=== PATIENT | male | born 1945 | race African-American/Black ===

== ENCOUNTER 2016-08-04 04:40 | Inpatient (IN) | payer MEDICAID, MEDICARE ==
[2016-08-04] VITALS (11 sets, daily range): BP systolic 165–220; BP diastolic 50–108
[~2016-08-04] VITALS: Ht 185.4 cm; Wt 108.9 kg
[~2016-08-04 04:40] MED LIST: TYLENOL325 MG ORAL
[2016-08-04] MEDS ORDERED: NEURONTIN300 MG ORAL (05:06)
[2016-08-04] MEDS ORDERED: ALBUTEROL SULF8.5 GM INH (05:06)
[2016-08-04] MEDS ORDERED: HYDRALAZINE HCL25 M2 PO (05:06)
[2016-08-04] MEDS ORDERED: LOSARTAN POTAS100 MG ORAL (05:06)
[2016-08-04] MEDS ORDERED: Lidocaine HCl 2% Jelly 5ml Tube TOPIC ONE (05:21)
[2016-08-04 05:42] LABS: BASOPHILS % (AUTO) 1.8 % (0.0-2.0); EOSINOPHILS % (AUTO) 1.6 % (0.0-3.0); LYMPHOCYTES % (AUTO) 25.2 % (20.0-45.0); MEAN CORPUSCULAR HEMOGLOBIN 29.4 PG (27.0-31.0); MEAN CORPUSCULAR HGB CONC 31.9 G/DL (32.0-36.0); MEAN CORPUSCULAR VOLUME 92 FL (80-99); MEAN PLATELET VOLUME 10.2 FL (6.5-10.1); MONOCYTES % (AUTO) 10.6 % (1.0-10.0); NEUTROPHILS % (AUTO) 60.9 % (45.0-75.0); PLATELET COUNT 223 K/UL (150-450); RED BLOOD COUNT 3.94 M/UL (4.70-6.10); RED CELL DISTRIBUTION WIDTH 12.6 % (11.6-14.8); WHITE BLOOD COUNT 9.5 K/UL (4.8-10.8)
--- NOTE | 2016-08-04 05:48 | Emergency Room Report ---
History of Present Illness General Chief Complaint: Male Urogenital Problems Source: Patient Present Illness HPI The patient presents that he cannot urinate. He is being treated for a large prostate at home. He is felt ill with the flu and therefore has been limiting his oral intake recently. He had fevers a few days ago but these have resolved. He has no abdominal pain and fullness. He denies any dysuria. The patient has high blood pressure pulse and has not taken his blood pressure medication for several days. No fevers, dysuria, hematuria, NVD, change in bowels, rashes, CRAIN. + generalized muscle aches with "flu". Allergies: Coded Allergies: NO KNOWN ALLERGIES (Unverified Allergy, Unknown, 08/04/16) Patient History Past Medical History: see triage record Social History: Reports: smoking Social History Narrative at home Reviewed Nursing Documentation: PMH: Agreed, PSxH: Agreed Nursing Documentation-PMH Hx Hypertension: Yes Hx COPD: Yes Hx Diabetes: Yes Review of Systems All Other Systems: negative except mentioned in HPI Physical Exam Vital Signs Date Time Temp Pulse Resp B/P Pulse Ox O2 Delivery O2 Flow Rate FiO2 08/04/16 05:00 97.9 97 20 96 Room Air 08/04/16 05:10 208/108 Sp02 EP Interpretation: reviewed, normal General Appearance: well appearing, no apparent distress, GCS 15 Head: normocephalic Eyes: bilateral eye PERRL, bilateral eye normal inspection ENT: moist mucus membranes Neck: supple Respiratory: lungs clear, normal breath sounds Cardiovascular #1: regular rate, rhythm Cardiovascular #2: 2+ radial (R) Gastrointestinal: normal inspection, normal bowel sounds, non tender, no mass, non-distended Musculoskeletal: back normal, gait/station normal, normal range of motion Neurologic: alert, oriented x3, grossly normal Psychiatric: mood/affect normal Skin: normal inspection, warm/dry Medical Decision Making Diagnostic Impression: Primary Impression: Acute urinary retention Additional Impressions: UTI (urinary tract infection) Qualified Codes: N30.00 - Acute cystitis without hematuria COPD exacerbation Renal failure ER Course Patient unable to urinate properly. Ddx; BPH, obstruction, UTI, ARF amongst others. Emergent evalution with labs. Weir will be placed. After weir, some urine, not excessive. UA with UTI. Antibiotics begun. C/O pain in lower back. morphine given with some relief. Last creat = 7 years ago - normal. Exertional wheezes with minimal exertion. Breathing treatments, solumedrol and CXR ordered. Admit medical for 2 reasons - COPD exacerbation and renal failure. Laboratory Tests Test 08/04/16 05:10 08/04/16 05:35 White Blood Count 9.5 K/UL (4.8-10.8) Red Blood Count 3.94 M/UL (4.70-6.10) L Hemoglobin 11.6 G/DL (14.2-18.0) L Hematocrit 36.3 % (42.0-52.0) L Mean Corpuscular Volume 92 FL (80-99) Mean Corpuscular Hemoglobin 29.4 PG (27.0-31.0) Mean Corpuscular Hemoglobin Concent 31.9 G/DL (32.0-36.0) L Red Cell Distribution Width 12.6 % (11.6-14.8) Platelet Count 223 K/UL (150-450) Mean Platelet Volume 10.2 FL (6.5-10.1) H Neutrophils (%) (Auto) 60.9 % (45.0-75.0) Lymphocytes (%) (Auto) 25.2 % (20.0-45.0) Monocytes (%) (Auto) 10.6 % (1.0-10.0) H Eosinophils (%) (Auto) 1.6 % (0.0-3.0) Basophils (%) (Auto) 1.8 % (0.0-2.0) Sodium Level 139 mEQ/L (135-145) Potassium Level 3.8 mEQ/L (3.4-4.9) Chloride Level 97 mEQ/L (98-107) L Carbon Dioxide Level 26 mEQ/L (20-30) Anion Gap 16 (5-15) H Blood Urea Nitrogen 18 mg/dL (7-23) Creatinine 1.4 mg/dL (0.7-1.2) H Estimate Glomerular Filtration Rate > 60 mL/min (>60) Glucose Level 206 mg/dL (74-106) H Calcium Level 8.9 mg/dL (8.6-10.2) Total Bilirubin 0.8 mg/dL (0.0-1.2) Aspartate Amino Transferase (AST) 27 U/L (5-40) Alanine Aminotransferase (ALT) 12 U/L (3-41) Alkaline Phosphatase 69 U/L (40-129) Total Protein 7.3 g/dL (6.6-8.7) Albumin 3.3 g/dL (3.5-5.2) L Globulin 4.0 g/dL Albumin/Globulin Ratio 0.8 (1.0-2.7) L Lipase 21 U/L (< 60) Urine Color Yellow Urine Appearance Clear Urine pH 7 (4.5-8.0) Urine Specific [place] 1.010 (1.005-1.035) Urine Protein 4+ (NEGATIVE) H Urine Glucose (UA) Negative (NEGATIVE) Urine Ketones 1+ (NEGATIVE) H Urine Occult Blood 4+ (NEGATIVE) H Urine Nitrite Negative (NEGATIVE) Urine Bilirubin Negative (NEGATIVE) Urine Urobilinogen 12 MG/DL (0.0-1.0) H Urine Leukocyte Esterase 1+ (NEGATIVE) H Urine RBC 20-30 /HPF (0 - 0) H Urine WBC 10-15 /HPF (0 - 0) H Urine Squamous Epithelial Cells Few /LPF (NONE/OCC) Urine Bacteria Few /HPF (NONE) EKG Diagnostic Results Rate: normal Rhythm: NSR ST Segments: no acute changes Rhythm Strip Diag. Results EP Interpretation: yes Rhythm: NSR, no PVC's, no ectopy Chest X-Ray Diagnostic Results EP Interpretation: Yes Findings: no consolidation, no effusion, no pneumothorax, other - COPD Number of Views: 1 Last Vital Signs Date Time Temp Pulse Resp B/P Pulse Ox O2 Delivery O2 Flow Rate FiO2 08/04/16 05:10 98.1 65 23 208/108 98 Room Air Status: improved Disposition: ADMITTED INPATIENT Condition: Serious Referrals: NOT CHOSEN IPA/,REFERRING (PCP) Wilson Salgado M.D. Aug 04, 2016 05:48
[2016-08-04 05:56] LABS: APPEARANCE,URINE CLEAR; KETONES,URINE 1+ (NEGATIVE); LEUKOCYTE ESTERASE ,URINE 1+ (NEGATIVE); NITRITE,URINE NEGATIVE (NEGATIVE); PH,URINE 7 (4.5-8.0); PROTEIN,URINE 4+ (NEGATIVE); UROBILINOGEN,URINE 12 MG/DL (0.0-1.0)
[2016-08-04] MEDS ORDERED: Losartan 25mg tab ORAL ONE (06:00)
[2016-08-04 06:47] LABS: BACTERIA,URINE FEW /HPF; RBC,URINE 20-30 /HPF (0 - 0); SQUAMOUS EPITHELIAL CELL,UR FEW /LPF (NONE/OCC)
[2016-08-04 07:07] LABS: ALANINE AMINOTRANSFERASE 12 U/L (3-41); ALBUMIN/GLOBULIN RATIO 0.8 (1.0-2.7); ANION GAP 16 (5-15); ASPARTATE AMINO TRANSFERASE 27 U/L (5-40); CALCIUM 8.9 mg/dL (8.6-10.2); CARBON DIOXIDE 26 mEQ/L (20-30); CHLORIDE 97 mEQ/L (98-107); CREATININE 1.4 mg/dL (0.7-1.2); GLOMERULAR FILTRATION RATE > 60 mL/min (>60); HEMOLYSIS 3; LIPASE 21 U/L (< 60); POTASSIUM 3.8 mEQ/L (3.4-4.9); SODIUM 139 mEQ/L (135-145); TOTAL PROTEIN 7.3 g/dL (6.6-8.7)
[2016-08-04] MEDS ORDERED: Solu-MEDROL 125mg Inj IVP ONE (07:15)
[2016-08-04] MEDS ORDERED: Ipratropium 0.02% Inh Soln 2.5ml UD HHN ONE (07:15)
[2016-08-04] MEDS ORDERED: Morphine Sulfate 4mg/ml Inj IVP ONE ×2 (07:15→12:15)
[2016-08-04] MEDS: Albuterol ud Inhalation HHN SCH ×8 (07:40→09:00)
[2016-08-04] MEDS ORDERED: cefTRIAXone 1 GM in NS 55 ML IVPB ONE (07:45)
[2016-08-04] MEDS ORDERED: Tubing IV Extension IV ONE (07:58)
[2016-08-04] MEDS ORDERED: NS 55 ML IV ONE (07:59)
--- NOTE | 2016-08-04 09:02 | Diagnostic Imaging Report ---
Indications: Shortness of breath Technique: Portable AP chest Findings: Comparison: 09/27/2009 Cardiac silhouette remains normal in size. Pulmonary vasculature remains within normal limits. Lungs and pleura remain clear. Mild calcification of the aortic arch is unchanged. IMPRESSION: No evidence of acute disease, unchanged Stable chronic changes as described
[2016-08-04] MEDS ORDERED: DuoNeb 0.5-3(2.5)mg/3ml neb HHN PRN (17:45)
[2016-08-04] MEDS ORDERED: cefTRIAXone 1 GM in D5W 55 ML IVPB ONE (17:45)
--- NOTE | 2016-08-04 18:59 | History & Physical ---
History and Physical History & Physicial Dictated for Int Med - Dr Kruger no. [id number]. ADEOLA CHIU Aug 04, 2016 18:59
[2016-08-04] MEDS ORDERED: Morphine Sulfate 4mg/ml Inj IM PRN (19:00)
[2016-08-04] MEDS: Levemir Flexpen SUBQ SCH (19:51)
[2016-08-04] MEDS: HydrALAZINE 25mg tab ORAL SCH (19:52)
[2016-08-04] MEDS ORDERED: Norco 7.5mg/325mg tab ORAL PRN (20:30)
[2016-08-04] MEDS ORDERED: Norco 5mg/325mg tab ORAL PRN (20:30)
[2016-08-04 20:54] LABS: ALANINE AMINOTRANSFERASE 12 U/L (3-41); ALBUMIN/GLOBULIN RATIO 0.9 (1.0-2.7); ANION GAP 13 (5-15); ASPARTATE AMINO TRANSFERASE 22 U/L (5-40); CALCIUM 8.4 mg/dL (8.6-10.2); CARBON DIOXIDE 26 mEQ/L (20-30); CHLORIDE 97 mEQ/L (98-107); CREATININE 1.9 mg/dL (0.7-1.2); GLOMERULAR FILTRATION RATE 42.7 mL/min (>60); HEMOLYSIS 10; POTASSIUM 4.8 mEQ/L (3.4-4.9); SODIUM 136 mEQ/L (135-145); TOTAL PROTEIN 6.6 g/dL (6.6-8.7); URIC ACID 8.5 mg/dL (3.0-7.5)
[2016-08-04 21:07] LABS: FREE T3 1.8 pg/mL (2.3-4.2); THYROID STIMULATING HORMONE 0.332 uIU/mL (0.300-4.500)
[2016-08-04] MEDS: Tamsulosin 0.4mg cap ORAL SCH (21:50)
[2016-08-04] MEDS: Atorvastatin 20mg tab ORAL SCH (21:51)
[2016-08-04] MEDS: NovoLOG Insulin Flexpen SUBQ SCH (21:51)
[2016-08-04 22:14] LABS: APPEARANCE,URINE CLEAR; KETONES,URINE NEGATIVE (NEGATIVE); LEUKOCYTE ESTERASE ,URINE 2+ (NEGATIVE); NITRITE,URINE NEGATIVE (NEGATIVE); PH,URINE 5 (4.5-8.0); PROTEIN,URINE 4+ (NEGATIVE); UROBILINOGEN,URINE 8 MG/DL (0.0-1.0)
[2016-08-04 22:31] LABS: BACTERIA,URINE FEW /HPF
[2016-08-05] VITALS: BP 173/86
--- NOTE | 2016-08-05 03:08 | History and Physical Report ---
DATE OF ADMISSION: 08/04/2016 CHIEF COMPLAINT: The patient is a 79-year-old male with a history of benign prostatic hypertrophy, who presents with chief complaint of decreased urine flow. HISTORY OF PRESENT ILLNESS: The patient has a history of benign prostatic hypertrophy. The patient states he got flu couple weeks ago. The patient has not been able to take his medications. The patient states his urine flow has decreased considerably over the last 24 hours. The patient is now unable to urinate. The patient presented to [facility] emergency room. The patient was admitted for urinary outlet obstruction. REVIEW OF SYSTEMS: Constitutional: The patient denies weight loss or weight gain. The patient denies fevers or chills. HEENT: The patient denies ear or throat pain. Cardiovascular: The patient denies palpitations or chest pain. Denies any wheezing or shortness of breath. Abdominal: The patient denies nausea, vomiting, diarrhea, or constipation. Genitourinary: The patient complains of decreased urine flow as above. The patient denies dysuria, increased frequency of urination. Neuromuscular: The patient denies seizures or generalized weakness. PAST MEDICAL HISTORY: Significant for: 1. Type 2 diabetes. 2. Hypertension. 3. Chronic obstructive pulmonary disease. 4. Benign prostatic hypertrophy. PAST SURGICAL HISTORY: Significant for: 1. Left total hip replacement. 2. Lumbar surgery. 3. Cervical spine surgery x2. CURRENT MEDICATIONS: 1. Albuterol 2.5 mg nebulized q.4 h. 2. Neurontin 300 mg one tablet p.o. daily. 3. Hydralazine 25 mg one tablet p.o. three times daily. 4. Losartan 100 mg one tablet p.o. daily. ALLERGIES: No known drug allergies. SOCIAL HISTORY: The patient is single. The patient denies tobacco use, having quit 18 years previously. The patient denies alcohol use. PHYSICAL EXAMINATION: VITAL SIGNS: Temperature 98.2, respirations 20, pulse 82, and blood pressure 192/70. GENERAL: The patient is well-developed and well-nourished male, in no apparent distress. HEENT: Eyes, pupils are equal and responsive to light and accommodation. Extraocular moves are intact. NECK: Supple without lymphadenopathy. CHEST: Lungs are clear to auscultation bilaterally without wheezes or rales. CARDIOVASCULAR: Regular rhythm and rate. S1 and S2 normal without murmurs, rubs, or gallops. ABDOMEN: Soft, nontender, and nondistended with positive bowel sounds. No evidence of hepatosplenomegaly currently. No rebound or guarding. EXTREMITIES: Negative for clubbing, cyanosis, or edema. RECTAL/GENITAL: Refused. NEUROLOGIC: Cranial nerves II through XII are grossly intact without focal deficits. Motor strength is 5/5 bilaterally. Deep tendon reflexes are 2+ plantar. LABORATORY STUDIES: WBC 9.5, hemoglobin 11.6, hematocrit 36.3, and platelets 222,000. Sodium 139, potassium 3.8, chloride 97, CO2 26, BUN 18, creatinine 1.4, and glucose 206. ASSESSMENT: This is a 71-year-old male with: 1. Urinary outlet obstruction. 2. Benign prostatic hypertrophy. 3. Diabetes, type 2. 4. Hypertension. 5. Chronic obstructive pulmonary disease. TREATMENT: 1. Urinary outlet obstruction. Urology consultation obtained with Dr. Rizvi. The patient currently has a Mcnair catheter in place. We will follow recommendations of Urology. The patient may require a transurethral resection of prostate during this hospitalization. 2. Benign prostatic hypertrophy. See urinary outlet obstruction in the bladder. 3. Diabetes type 2. The patient has been started on Levemir 5 units subcutaneously daily and a regular insulin sliding scale. 4. Hypertension. The patient has been started on hydralazine 100 mg one tablet p.o. three times daily. Clonidine will be used p.r.n. for systolic greater than 150 and diastolic greater than 100. 5. Chronic obstructive pulmonary disease. The patient has been started on DuoNeb q.4 h. p.r.n. Rip Childress M.D. DR: MURPHY JOB#: [id number] CC:
[2016-08-05 04:00] VITALS: BP 183/72
[2016-08-05] MEDS: NovoLOG Insulin Flexpen SUBQ SCH ×4 (06:01→22:04)
[2016-08-05 07:09] LABS: ALBUMIN/GLOBULIN RATIO 0.7 (1.0-2.7); CALCIUM 8.2 mg/dL (8.6-10.2); CREATININE 1.5 mg/dL (0.7-1.2); GLOMERULAR FILTRATION RATE 56.1 mL/min (>60); MAGNESIUM 1.7 mg/dL (1.7-2.5); PHOSPHORUS 3.8 mg/dL (2.5-4.8); POTASSIUM 4.5 mEQ/L (3.4-4.9); TOTAL PROTEIN 6.3 g/dL (6.6-8.7)
[2016-08-05 07:39] LABS: BASOPHILS % (AUTO) 1.2 % (0.0-2.0); LYMPHOCYTES % (AUTO) 17.5 % (20.0-45.0); MEAN CORPUSCULAR HGB CONC 31.5 G/DL (32.0-36.0); MEAN CORPUSCULAR VOLUME 92 FL (80-99); MEAN PLATELET VOLUME 10.5 FL (6.5-10.1); MONOCYTES % (AUTO) 10.3 % (1.0-10.0); PLATELET COUNT 180 K/UL (150-450); RED BLOOD COUNT 3.45 M/UL (4.70-6.10); RED CELL DISTRIBUTION WIDTH 12.4 % (11.6-14.8)
[2016-08-05 08:00] VITALS: BP 177/73
[2016-08-05] MEDS: HydrALAZINE 25mg tab ORAL SCH ×3 (09:39→17:09)
[2016-08-05] MEDS: cefTRIAXone 1 GM in D5W 55 ML IVPB SCH (09:39)
[2016-08-05] MEDS: Levemir Flexpen SUBQ SCH (09:47)
[2016-08-05 12:00] VITALS: BP 181/75
--- NOTE | 2016-08-05 13:47 | Consultation ---
DATE OF CONSULTATION: 08/05/2015 CONSULTING PHYSICIAN: Jose Rizvi M.D. REFERRING PHYSICIAN: Rip Childress M.D. REASON FOR EVALUATION: Urinary retention. HISTORY OF PRESENT ILLNESS: This is a 71-year-old, gentleman. He has a history of BPH. He came to the emergency room complaining of difficulty voiding. He had a Mcnair catheter placed in the emergency room. He apparently does have a strong family history of BPH. He has been on Flomax as an outpatient. Denies previous prostate surgery. PAST MEDICAL HISTORY: Significant for history of diabetes, hypertension, chronic obstructive pulmonary disease, BPH, and mild renal chronic renal insufficiency. PAST SURGICAL HISTORY: He has had a hip replacement. He has had spine surgery. CURRENT MEDICATIONS: In the hospital, the patient is on Rocephin, insulin, Lipitor, Flomax, [place], Neurontin, , Levemir, and dextrose. ALLERGIES: No known allergies. SOCIAL HISTORY: smoking. FAMILY HISTORY: Noncontributory. REVIEW OF SYSTEMS: As above. PHYSICAL EXAMINATION: GENERAL: This is an elderly male, in no acute distress. VITAL SIGNS: His temperature is 98.2, blood pressure is 182/78, pulse 70, respirations 21. HEENT: Normocephalic. NECK: Supple. ABDOMEN: Soft. BACK: No CVA tenderness. : Mcnair catheter is place. Urine is yellow. RECTAL: Firm prostate about 40 to 60 g. EXTREMITIES: No clubbing or cyanosis. LABORATORY DATA: His UA showed 20 to 30, RBCs 10 to 15, WBCs 4+ protein. There is no urine culture. His BUN is 29, creatinine is 1.5. He did have a creatinine of 1.9 yesterday, potassium 4.5. White count is 13.0, hemoglobin 10.0, and platelets are 180,000. DIAGNOSTIC IMAGING STUDIES: The patient had a chest x-ray, which did not show acute disease. IMPRESSION: 1. Urinary retention. 2. Benign prostatic hypertrophy. 3. Probable neurogenic bladder. 4. Renal insufficiency, which is acute on chronic. 5. Hematuria. 6. Pyuria. 7. Possible chronic prostatitis. 8. Proteinuria. PLAN AND DISCUSSION: Again, the patient does have urinary retention presumably secondary to combination of BPH related bladder outlet obstruction and possible atonic neurogenic bladder because of the diabetes and previous spine surgery. He is to continue with Flomax 0.8 mg as ordered. We will also consider adding finasteride 5 mg daily. He also has pyuria and he had a component of chronic prostatitis and to continue with antibiotics as ordered. He does have some renal insufficiency with fluctuations of his creatinine and this will be monitored closely. Renal ultrasound will also be obtained. At some point, we need to have cystoscopy to complete the workup and . I will follow the patient. Other recommendations forthcoming. Thank you, Dr. Childress, for asking me to see this patient in consultation. Jose Rizvi M.D. DR: NADINE JOB#: [id number] CC:
[2016-08-05 16:00] VITALS: BP 173/93
[2016-08-05] MEDS ORDERED: Promethazine/Codeine 5ml UD ORAL PRN (16:15)
--- NOTE | 2016-08-05 16:15 | Consultation ---
History of Present Illness General Date patient seen: Aug 05, 2016 Chief Complaint: Male Urogenital Problems Referring physician: Dr. Kruger Reason for Consultation: dyspnea Present Illness HPI 71 year old male with hx of dM, BPH, COPD presented to Er of [facility] because he couldn't urinate. He was also noted to have dyspnea and wheezing. Pt has a hx of smoking and COPD. He has also some productive cough Allergies: Coded Allergies: NO KNOWN ALLERGIES (Unverified Allergy, Unknown, 08/04/16) Medication History Scheduled Albuterol Sulfate* (Albuterol Sulfate Mdi*), 2 PUFF INH Q3H, (Reported) Losartan Potassium (Losartan Potassium), Unknown Dose ORAL DAILY, (Reported) Scheduled PRN Acetaminophen (Tylenol), 650 MG ORAL Q6H PRN for For Pain Miscellaneous Medications Gabapentin (Neurontin), 300 MG ORAL, (Reported) Hydralazine HCl (Hydralazine HCl), 25 MG PO, (Reported) Patient History Healthcare decision maker Resuscitation status Full Code Advanced Directive on File No Past Medical/Surgical History Past Medical/Surgical History: (1) COPD (chronic obstructive pulmonary disease) (2) Diabetes mellitus (3) HTN (hypertension) Review of Systems Respiratory: Reports: cough, shortness of breath Genitourinary: Reports: dysuria Physical Exam Lines, tubes and drains: peripheral, central line, trach HEENT: atraumatic Neck: non-tender, supple Respiratory/Chest: rhonchi - left, rhonchi - right, expiratory wheezing Cardiovascular/Chest: normal peripheral pulses, normal rate Abdomen: normal bowel sounds Last 24 Hour Vital Signs Date Time Temp Pulse Resp B/P Pulse Ox O2 Delivery O2 Flow Rate FiO2 08/05/16 14:43 98.1 08/05/16 12:47 98.1 08/05/16 12:00 98.1 88 22 181/75 99 Room Air 08/05/16 11:48 177/73 08/05/16 09:39 177/73 08/05/16 08:00 98.2 82 21 177/73 95 Room Air 08/05/16 04:00 98.1 70 22 183/72 95 Room Air 08/05/16 00:00 98.6 75 20 173/86 93 08/04/16 20:00 78 20 Room Air 21 08/04/16 20:00 98.4 78 21 165/71 92 Room Air 08/04/16 19:52 169/87 08/04/16 16:30 97.2 84 24 169/87 93 Room Air Intake and Output 08/04/16 08/05/16 19:00 07:00 Intake Total 1945 ml 900 ml Output Total 275 ml Balance 1670 ml 900 ml Intake Oral 240 ml IV Total 1705 ml 900 ml Output Urine Total 275 ml Laboratory Tests Test 08/04/16 20:00 08/04/16 20:15 08/05/16 05:10 Urine Color Brown Urine Appearance Clear Urine pH 5 (4.5-8.0) Urine Specific [place] 1.020 (1.005-1.035) Urine Protein 4+ (NEGATIVE) H Urine Glucose (UA) Negative (NEGATIVE) Urine Ketones Negative (NEGATIVE) Urine Occult Blood 4+ (NEGATIVE) H Urine Nitrite Negative (NEGATIVE) Urine Bilirubin Negative (NEGATIVE) Urine Urobilinogen 8 MG/DL (0.0-1.0) H Urine Leukocyte Esterase 2+ (NEGATIVE) H Urine RBC 5-10 /HPF (0 - 0) H Urine WBC 2-4 /HPF (0 - 0) Urine Squamous Epithelial Cells None /LPF (NONE/OCC) Urine Bacteria Few /HPF (NONE) Urine Eosinophils None seen Urine Random Sodium 36 mmol/L Urine Random Chloride 30 mmol/L Urine Potassium Timed 60 mmol/L Sodium Level 136 mEQ/L (135-145) 139 mEQ/L (135-145) Potassium Level 4.8 mEQ/L (3.4-4.9) 4.5 mEQ/L (3.4-4.9) Chloride Level 97 mEQ/L (98-107) L 103 mEQ/L (98-107) Carbon Dioxide Level 26 mEQ/L (20-30) 21 mEQ/L (20-30) Anion Gap 13 (5-15) 15 (5-15) Blood Urea Nitrogen 28 mg/dL (7-23) H 29 mg/dL (7-23) H Creatinine 1.9 mg/dL (0.7-1.2) H 1.5 mg/dL (0.7-1.2) H Estimat Glomerular Filtration Rate 42.7 mL/min (>60) 56.1 mL/min (>60) Glucose Level 333 mg/dL (74-106) #H 107 mg/dL (74-106) #H Plasma/Serum Osmolality Pending Uric Acid 8.5 mg/dL (3.0-7.5) H Calcium Level 8.4 mg/dL (8.6-10.2) L 8.2 mg/dL (8.6-10.2) L Total Bilirubin 0.5 mg/dL (0.0-1.2) 0.6 mg/dL (0.0-1.2) Aspartate Amino Transf (AST/SGOT) 22 U/L (5-40) 21 U/L (5-40) Alanine Aminotransferase (ALT/SGPT) 12 U/L (3-41) 10 U/L (3-41) Alkaline Phosphatase 70 U/L (40-129) 56 U/L (40-129) Total Creatine Kinase 154 U/L (38-174) Total Protein 6.6 g/dL (6.6-8.7) 6.3 g/dL (6.6-8.7) L Albumin 3.2 g/dL (3.5-5.2) L 2.6 g/dL (3.5-5.2) L Globulin 3.4 g/dL 3.7 g/dL Albumin/Globulin Ratio 0.9 (1.0-2.7) L 0.7 (1.0-2.7) L Thyroid Stimulating Hormone (TSH) 0.332 uIU/mL (0.300-4.500) Free Thyroxine 1.39 ng/dL (0.86-1.85) Free Triiodothyronine 1.8 pg/mL (2.3-4.2) L Cortisol Pending White Blood Count 13.0 K/UL (4.8-10.8) H Red Blood Count 3.45 M/UL (4.70-6.10) L Hemoglobin 10.0 G/DL (14.2-18.0) L Hematocrit 31.7 % (42.0-52.0) L Mean Corpuscular Volume 92 FL (80-99) Mean Corpuscular Hemoglobin 29.0 PG (27.0-31.0) Mean Corpuscular Hemoglobin Concent 31.5 G/DL (32.0-36.0) L Red Cell Distribution Width 12.4 % (11.6-14.8) Platelet Count 180 K/UL (150-450) Mean Platelet Volume 10.5 FL (6.5-10.1) H Neutrophils (%) (Auto) 71.0 % (45.0-75.0) Lymphocytes (%) (Auto) 17.5 % (20.0-45.0) L Monocytes (%) (Auto) 10.3 % (1.0-10.0) H Eosinophils (%) (Auto) 0.0 % (0.0-3.0) Basophils (%) (Auto) 1.2 % (0.0-2.0) Phosphorus Level 3.8 mg/dL (2.5-4.8) Magnesium Level 1.7 mg/dL (1.7-2.5) Height (Feet): 6 Height (Inches): 1.00 Weight (Pounds): 240 Medications Current Medications Medications (Trade) Dose Ordered Sig/Ana Route PRN Reason Start Time Stop Time Status Last Admin Dose Admin Acetaminophen/ Hydrocodone Bitart ([place] 5/325) 1 tab Q6H PRN ORAL Moderate Pain (Pain Scale 4-6) 08/04/16 20:30 08/11/16 20:29 Acetaminophen/ Hydrocodone Bitart ([place] 7.5/325) 1 ea EVERY 6 HOURS PRN ORAL Severe Pain (Pain Scale 7-10) 08/04/16 20:30 08/11/16 20:29 08/05/16 13:44 Albuterol/ Ipratropium (DuoNeb 0.5-3(2.5)mg/3ml) 3 ml Q4HRT PRN HHN Shortness of Breath 08/04/16 17:45 08/09/16 17:44 08/05/16 11:45 Atorvastatin Calcium (Lipitor) 20 mg BEDTIME ORAL 08/04/16 21:00 09/03/16 20:59 08/04/16 21:51 Ceftriaxone Sodium/Dextrose (Rocephin/D5W 50ml) 55 ml @ 100 mls/hr Q24H IVPB 08/05/16 09:00 08/12/16 08:59 08/05/16 09:39 Dextrose (Dextrose 50%) STAT PRN IV Hypoglycemia 08/04/16 17:45 09/03/16 17:44 Finasteride (Proscar) 5 mg DAILY ORAL 08/05/16 09:30 09/04/16 09:29 08/05/16 09:39 Gabapentin (Neurontin) 600 mg THREE TIMES A DAY ORAL 08/05/16 10:15 09/04/16 10:14 08/05/16 11:48 Hydralazine HCl (Apresoline) 100 mg TID ORAL 08/04/16 18:00 09/03/16 17:59 08/05/16 11:48 Insulin Aspart (NovoLOG) BEFORE MEALS AND HS SUBQ 08/04/16 21:00 09/03/16 20:59 08/05/16 11:50 Insulin Detemir (Levemir) 5 units DAILY SUBQ 08/04/16 17:45 09/03/16 17:44 08/05/16 09:47 Ondansetron HCl 4 mg 4 mg Q4HR PRN IVP Nausea & Vomiting 08/04/16 19:00 09/03/16 18:59 Sodium Chloride (Sodium Chloride 1000ml bag) 1,000 ml @ 75 mls/hr [id number] IV 08/04/16 17:45 09/03/16 17:44 08/05/16 06:01 Tamsulosin HCl (Flomax) 0.8 mg BEDTIME ORAL 08/04/16 21:00 09/03/16 20:59 08/04/16 21:50 Assessment/Plan Problem List: (1) COPD (chronic obstructive pulmonary disease) ICD Codes: J44.9 - Chronic obstructive pulmonary disease, unspecified SNOMED: 60141850 (2) Purulent bronchitis ICD Codes: J41.1 - Mucopurulent chronic bronchitis SNOMED: 73949490 (3) COPD exacerbation ICD Codes: J44.1 - Chronic obstructive pulmonary disease with (acute) exacerbation SNOMED: 372917503, 117646548 (4) UTI (urinary tract infection) ICD Codes: N39.0 - Urinary tract infection, site not specified SNOMED: 03928930, 338763664 Qualifiers: Qualified Codes: N30.00 - Acute cystitis without hematuria (5) Renal failure ICD Codes: N19 - Unspecified kidney failure SNOMED: 89656100 (6) HTN (hypertension) ICD Codes: I10 - Essential (primary) hypertension SNOMED: 41824303 Assessment/Plan respiratory treatment IV antibiotics check sputum c/s renal evaluation chest PT check electrolytes monitor BP KALEIGH SCHULER Aug 05, 2016 16:15
[2016-08-05] MEDS ORDERED: Norco 5mg/325mg tab ORAL PRN (16:26)
[2016-08-05] MEDS ORDERED: Norco 7.5mg/325mg tab ORAL PRN (16:26)
[2016-08-05] MEDS ORDERED: HydrALAZINE 50mg tab ORAL PRN (16:45)
[2016-08-05] MEDS: Morphine Sulfate 4mg/ml Inj IV PRN ×2 (16:49→22:07)
[2016-08-05] MEDS: Lactulose 20gm/30ml UDC ORAL SCH (17:06)
[2016-08-05] MEDS: Docusate 100mg cap ORAL SCH (17:09)
[2016-08-05] MEDS: DuoNeb 0.5-3(2.5)mg/3ml neb HHN SCH (19:28)
[2016-08-05 20:00] VITALS: BP 170/76
--- NOTE | 2016-08-05 20:27 | Internal Med Progress Note ---
Subjective Date of Service: Aug 05, 2016 Physician Name Rip Chiu Attending Physician Jake Kruger MD Current Medications Medications (Trade) Dose Ordered Sig/Ana Route PRN Reason Start Time Stop Time Status Last Admin Dose Admin Acetaminophen/ Hydrocodone Bitart ([place] 5/325) 1 tab Q6H PRN ORAL Mild Pain (Pain Scale 1-3) 08/05/16 16:26 08/11/16 20:29 Acetaminophen/ Hydrocodone Bitart ([place] 7.5/325) 1 ea EVERY 6 HOURS PRN ORAL Moderate Pain (Pain Scale 4-6) 08/05/16 16:26 08/11/16 20:29 Albuterol/ Ipratropium (DuoNeb 0.5-3(2.5)mg/3ml) 3 ml Q4HRT PRN HHN Shortness of Breath 08/04/16 17:45 08/09/16 17:44 08/05/16 11:45 Albuterol/ Ipratropium (DuoNeb 0.5-3(2.5)mg/3ml) 3 ml Q6HRT HHN 08/05/16 19:00 08/10/16 18:59 08/05/16 19:28 Atorvastatin Calcium (Lipitor) 20 mg BEDTIME ORAL 08/04/16 21:00 09/03/16 20:59 08/04/16 21:51 Carvedilol (Coreg) 3.125 mg EVERY 12 HOURS ORAL 08/05/16 21:00 09/04/16 20:59 Ceftriaxone Sodium/Dextrose (Rocephin/D5W 50ml) 55 ml @ 100 mls/hr Q24H IVPB 08/05/16 09:00 08/12/16 08:59 08/05/16 09:39 Dextrose (Dextrose 50%) STAT PRN IV Hypoglycemia 08/04/16 17:45 09/03/16 17:44 Docusate Sodium (Colace) 100 mg THREE TIMES A DAY ORAL 08/05/16 18:00 09/04/16 17:59 08/05/16 17:09 Finasteride (Proscar) 5 mg DAILY ORAL 08/05/16 09:30 09/04/16 09:29 08/05/16 09:39 Gabapentin (Neurontin) 600 mg THREE TIMES A DAY ORAL 1/16/17 10:15 09/04/16 10:14 08/05/16 17:09 Hydralazine HCl (Apresoline) 50 mg Q4HR PRN ORAL SBP>160 08/05/16 16:45 09/04/16 16:44 Hydralazine HCl (Apresoline) 100 mg TID ORAL 08/04/16 18:00 09/03/16 17:59 08/05/16 17:09 Insulin Aspart (NovoLOG) BEFORE MEALS AND HS SUBQ 08/04/16 21:00 09/03/16 20:59 08/05/16 16:57 Insulin Detemir (Levemir) 5 units DAILY SUBQ 08/04/16 17:45 09/03/16 17:44 08/05/16 09:47 Lactulose (Cephulac) 30 gm THREE TIMES A DAY ORAL 08/05/16 18:00 09/04/16 17:59 Mineral Oil (Fleet's Mineral Oil Enema) 133 ml EVERY OTHER DAY RECTAL 08/07/16 09:00 09/06/16 08:59 Morphine Sulfate (Morphine Sulfate) 4 mg Q4H PRN IV Severe Pain (Pain Scale 7-10) 08/05/16 16:15 08/12/16 16:14 08/05/16 16:49 Ondansetron HCl 4 mg 4 mg Q4HR PRN IVP Nausea & Vomiting 08/04/16 19:00 09/03/16 18:59 Polyethylene Glycol (Miralax) 17 gm BEDTIME ORAL 08/05/16 21:00 09/04/16 20:59 Promethazine HCl/ Codeine (Phenergan with Codeine) 5 ml Q4H PRN ORAL For Cough 08/05/16 16:15 09/04/16 16:14 Sennosides (Senokot) 8.6 mg DAILY ORAL 08/06/16 09:00 09/05/16 08:59 Sodium Chloride (Sodium Chloride 1000ml bag) 1,000 ml @ 75 mls/hr [id number] IV 08/04/16 17:45 09/03/16 17:44 08/05/16 06:01 Tamsulosin HCl (Flomax) 0.8 mg BEDTIME ORAL 08/04/16 21:00 09/03/16 20:59 08/04/16 21:50 Allergies: Coded Allergies: NO KNOWN ALLERGIES (Unverified Allergy, Unknown, 08/04/16) ROS Limited/Unobtainable: No Constitutional: Reports: no symptoms HEENT: Reports: no symptoms Cardiovascular: Reports: no symptoms Respiratory: Reports: no symptoms Gastrointestinal/Abdominal: Reports: no symptoms Genitourinary: Reports: other - Urine obstruction Neurologic/Psychiatric: Reports: no symptoms Subjective 71 YO M admitted with urine outlet obstruction. Cover for Int Med-Dr Kruger. Objective Last Vital Signs Date Time Temp Pulse Resp B/P Pulse Ox O2 Delivery O2 Flow Rate FiO2 08/05/16 19:45 76 18 98 Room Air 21 08/05/16 17:09 173/93 08/05/16 14:43 98.1 General Appearance: WD/WN, no apparent distress, alert EENT: PERRL/EOMI, normal ENT inspection Neck: non-tender, normal alignment, supple Cardiovascular: normal peripheral pulses, normal rate, regular rhythm, no gallop/murmur, no JVD Respiratory/Chest: chest wall non-tender, lungs clear, normal breath sounds, no respiratory distress, no accessory muscle use Abdomen: normal bowel sounds, non tender, soft, no organomegaly, no mass Extremities: normal range of motion Neurologic: bottom stainer II-XII grossly normal, no motor/sensory deficits Skin: normal pigmentation, warm/dry Laboratory Tests Test 08/05/16 05:10 White Blood Count 13.0 K/UL (4.8-10.8) H Red Blood Count 3.45 M/UL (4.70-6.10) L Hemoglobin 10.0 G/DL (14.2-18.0) L Hematocrit 31.7 % (42.0-52.0) L Mean Corpuscular Volume 92 FL (80-99) Mean Corpuscular Hemoglobin 29.0 PG (27.0-31.0) Mean Corpuscular Hemoglobin Concent 31.5 G/DL (32.0-36.0) L Red Cell Distribution Width 12.4 % (11.6-14.8) Platelet Count 180 K/UL (150-450) Mean Platelet Volume 10.5 FL (6.5-10.1) H Neutrophils (%) (Auto) 71.0 % (45.0-75.0) Lymphocytes (%) (Auto) 17.5 % (20.0-45.0) L Monocytes (%) (Auto) 10.3 % (1.0-10.0) H Eosinophils (%) (Auto) 0.0 % (0.0-3.0) Basophils (%) (Auto) 1.2 % (0.0-2.0) Sodium Level 139 mEQ/L (135-145) Potassium Level 4.5 mEQ/L (3.4-4.9) Chloride Level 103 mEQ/L (98-107) Carbon Dioxide Level 21 mEQ/L (20-30) Anion Gap 15 (5-15) Blood Urea Nitrogen 29 mg/dL (7-23) H Creatinine 1.5 mg/dL (0.7-1.2) H Estimat Glomerular Filtration Rate 56.1 mL/min (>60) Glucose Level 107 mg/dL (74-106) #H Calcium Level 8.2 mg/dL (8.6-10.2) L Phosphorus Level 3.8 mg/dL (2.5-4.8) Magnesium Level 1.7 mg/dL (1.7-2.5) Total Bilirubin 0.6 mg/dL (0.0-1.2) Aspartate Amino Transf (AST/SGOT) 21 U/L (5-40) Alanine Aminotransferase (ALT/SGPT) 10 U/L (3-41) Alkaline Phosphatase 56 U/L (40-129) Total Protein 6.3 g/dL (6.6-8.7) L Albumin 2.6 g/dL (3.5-5.2) L Globulin 3.7 g/dL Albumin/Globulin Ratio 0.7 (1.0-2.7) L Intake and Output 08/04/16 08/05/16 19:00 07:00 Intake Total 1945 ml 900 ml Output Total 275 ml Balance 1670 ml 900 ml Intake Oral 240 ml IV Total 1705 ml 900 ml Output Urine Total 275 ml Assessment/Plan Problem List: (1) Accelerated hypertension Assessment & Plan: D/C Coreg; Continue hydralazine and losartan. Clonidine prn (2) Decreased urine output (3) Acute urinary retention Assessment & Plan: See urology note. Await cystoscopy (4) Diabetes mellitus Assessment & Plan: Cont novolog sliding scale. (5) COPD (chronic obstructive pulmonary disease) (6) BPH (benign prostatic hypertrophy) Assessment & Plan: Cont flomax (7) Neurogenic bladder Status: not improved RIP CHIU Aug 05, 2016 20:27
--- NOTE | 2016-08-05 21:25 | Cardiology Report ---
APPROVED REPORT EKG Measurement Heart [id number] [id number] Normal sinus rhythm Septal infarct, age undetermined Abnormal ECG
[2016-08-05] MEDS: Tamsulosin 0.4mg cap ORAL SCH (22:03)
[2016-08-05] MEDS: Atorvastatin 20mg tab ORAL SCH (22:03)
[2016-08-05] MEDS: Miralax 17gm pkt ORAL SCH (22:04)
[2016-08-05] MEDS: Losartan 50mg tab ORAL SCH (22:04)
[2016-08-06] MEDS: DuoNeb 0.5-3(2.5)mg/3ml neb HHN SCH ×4 (00:42→20:45)
[2016-08-06 04:00] VITALS: BP 175/89
[2016-08-06] MEDS: NovoLOG Insulin Flexpen SUBQ SCH ×4 (06:06→22:00)
[2016-08-06] MEDS: Morphine Sulfate 4mg/ml Inj IV PRN ×3 (07:00→17:35)
[2016-08-06 07:22] LABS: BASOPHILS % (AUTO) 1.9 % (0.0-2.0); LYMPHOCYTES % (AUTO) 25.1 % (20.0-45.0); MEAN CORPUSCULAR HEMOGLOBIN 28.9 PG (27.0-31.0); MEAN CORPUSCULAR HGB CONC 31.3 G/DL (32.0-36.0); MEAN CORPUSCULAR VOLUME 92 FL (80-99); MEAN PLATELET VOLUME 10.7 FL (6.5-10.1); MONOCYTES % (AUTO) 8.7 % (1.0-10.0); NEUTROPHILS % (AUTO) 61.3 % (45.0-75.0); PLATELET COUNT 160 K/UL (150-450); RED BLOOD COUNT 3.78 M/UL (4.70-6.10); RED CELL DISTRIBUTION WIDTH 12.5 % (11.6-14.8); WHITE BLOOD COUNT 7.4 K/UL (4.8-10.8)
[2016-08-06 07:35] LABS: ANION GAP 14 (5-15); CALCIUM 8.1 mg/dL (8.6-10.2); CARBON DIOXIDE 24 mEQ/L (20-30); CHLORIDE 99 mEQ/L (98-107); CREATININE 1.3 mg/dL (0.7-1.2); GLOMERULAR FILTRATION RATE > 60 mL/min (>60); HEMOLYSIS 7; POTASSIUM 4.3 mEQ/L (3.4-4.9); SODIUM 137 mEQ/L (135-145)
[2016-08-06] MEDS: cefTRIAXone 1 GM in D5W 55 ML IVPB SCH (08:19)
[2016-08-06] MEDS: HydrALAZINE 25mg tab ORAL SCH ×3 (08:20→18:06)
[2016-08-06] MEDS: Docusate 100mg cap ORAL SCH ×3 (08:20→18:06)
[2016-08-06] MEDS: Lactulose 20gm/30ml UDC ORAL SCH ×4 (08:21→18:07)
[2016-08-06] MEDS: Levemir Flexpen SUBQ SCH (08:29)
[2016-08-06 08:38] VITALS: BP 181/85
--- NOTE | 2016-08-06 10:05 | Urology Progress Note ---
Assessment/Plan Assessment/Plan 1. Urinary retention. 2. Benign prostatic hypertrophy. 3. Probable neurogenic bladder. 4. Renal insufficiency, which is acute on chronic. 5. Hematuria. 6. Pyuria. 7. Possible chronic prostatitis. 8. Proteinuria. cont flomax and proscar abx as ordered f/u on urine cx voiding trial later Subjective Allergies: Coded Allergies: NO KNOWN ALLERGIES (Unverified Allergy, Unknown, 08/04/16) Subjective no new complaints Objective Last 24 Hour Vital Signs Date Time Temp Pulse Resp B/P Pulse Ox O2 Delivery O2 Flow Rate FiO2 08/06/16 08:38 97.7 81 18 181/85 98 Room Air 08/06/16 08:20 175/89 08/06/16 08:20 175/89 08/06/16 07:56 81 17 100 Room Air 21 08/06/16 07:41 21 08/06/16 07:41 78 16 95 Room Air 21 08/06/16 07:30 97.5 08/06/16 07:30 97.5 08/06/16 04:36 175/89 08/06/16 04:00 97.5 74 18 175/89 93 Room Air 08/06/16 00:43 Room Air 08/06/16 00:42 Room Air 08/05/16 22:04 170/76 08/05/16 20:00 98.4 84 20 170/76 93 Room Air 08/05/16 19:45 76 18 98 Room Air 21 08/05/16 19:28 79 18 95 Room Air 21 08/05/16 17:09 173/93 08/05/16 16:00 97.7 93 22 173/93 91 Room Air 08/05/16 14:43 98.1 08/05/16 12:00 98.1 88 22 181/75 99 Room Air 08/05/16 11:48 177/73 Intake and Output 08/05/16 08/06/16 19:00 07:00 Intake Total 1400 ml 1125 ml Output Total 350 ml 1050 ml Balance 1050 ml 75 ml Intake Oral 700 ml 225 ml IV Total 700 ml 900 ml Output Urine Total 350 ml 1050 ml Microbiology Date/Time Source Procedure Growth Status 08/04/16 05:35 Urine,Clean Catch Urine Culture - Preliminary NO GROWTH Resulted Current Medications Medications (Trade) Dose Ordered Sig/Ana Route PRN Reason Start Time Stop Time Status Last Admin Dose Admin Acetaminophen/ Hydrocodone Bitart ([place] 5/325) 1 tab Q6H PRN ORAL Mild Pain (Pain Scale 1-3) 08/05/16 16:26 08/11/16 20:29 Acetaminophen/ Hydrocodone Bitart ([place] 7.5/325) 1 ea EVERY 6 HOURS PRN ORAL Moderate Pain (Pain Scale 4-6) 08/05/16 16:26 08/11/16 20:29 Albuterol/ Ipratropium (DuoNeb 0.5-3(2.5)mg/3ml) 3 ml Q4HRT PRN HHN Shortness of Breath 08/04/16 17:45 08/09/16 17:44 08/05/16 11:45 Albuterol/ Ipratropium (DuoNeb 0.5-3(2.5)mg/3ml) 3 ml Q6HRT HHN 08/05/16 19:00 08/10/16 18:59 08/06/16 07:41 Atorvastatin Calcium (Lipitor) 20 mg BEDTIME ORAL 08/04/16 21:00 09/03/16 20:59 08/05/16 22:03 Ceftriaxone Sodium/Dextrose (Rocephin/D5W 50ml) 55 ml @ 100 mls/hr Q24H IVPB 08/05/16 09:00 08/12/16 08:59 08/06/16 08:19 Clonidine HCl (Catapres) 0.1 mg Q4H PRN ORAL For High Blood Pressure 08/05/16 21:15 09/04/16 21:14 08/06/16 08:20 Dextrose (Dextrose 50%) STAT PRN IV Hypoglycemia 08/04/16 17:45 09/03/16 17:44 Docusate Sodium (Colace) 100 mg THREE TIMES A DAY ORAL 08/05/16 18:00 09/04/16 17:59 08/06/16 08:20 Finasteride (Proscar) 5 mg DAILY ORAL 08/05/16 09:30 09/04/16 09:29 08/06/16 08:23 Gabapentin (Neurontin) 600 mg THREE TIMES A DAY ORAL 08/05/16 10:15 09/04/16 10:14 08/06/16 08:20 Hydralazine HCl (Apresoline) 100 mg TID ORAL 08/04/16 18:00 09/03/16 17:59 08/06/16 08:20 Insulin Aspart (NovoLOG) BEFORE MEALS AND HS SUBQ 08/04/16 21:00 09/03/16 20:59 08/05/16 22:04 Insulin Detemir (Levemir) 5 units DAILY SUBQ 08/04/16 17:45 09/03/16 17:44 08/06/16 08:29 Lactulose (Cephulac) 30 gm THREE TIMES A DAY ORAL 08/05/16 18:00 09/04/16 17:59 Losartan Potassium (Cozaar) 100 mg DAILY ORAL 08/05/16 21:30 09/04/16 21:29 08/05/16 22:04 Mineral Oil (Fleet's Mineral Oil Enema) 133 ml EVERY OTHER DAY RECTAL 08/07/16 09:00 09/06/16 08:59 Morphine Sulfate (Morphine Sulfate) 4 mg Q4H PRN IV Severe Pain (Pain Scale 7-10) 08/05/16 16:15 08/12/16 16:14 08/06/16 07:00 Ondansetron HCl 4 mg 4 mg Q4HR PRN IVP Nausea & Vomiting 08/04/16 19:00 09/03/16 18:59 Polyethylene Glycol (Miralax) 17 gm BEDTIME ORAL 08/05/16 21:00 09/04/16 20:59 Promethazine HCl/ Codeine (Phenergan with Codeine) 5 ml Q4H PRN ORAL For Cough 08/05/16 16:15 09/04/16 16:14 Sennosides (Senokot) 8.6 mg DAILY ORAL 08/06/16 09:00 09/05/16 08:59 08/06/16 08:20 Sodium Chloride (Sodium Chloride 1000ml bag) 1,000 ml @ 75 mls/hr [id number] IV 08/04/16 17:45 09/03/16 17:44 08/05/16 22:03 Tamsulosin HCl (Flomax) 0.8 mg BEDTIME ORAL 08/04/16 21:00 09/03/16 20:59 08/05/16 22:03 Laboratory Tests 08/06/16 06:15: White Blood Count 7.4, Red Blood Count 3.78L, Hemoglobin 10.9L, Hematocrit 34.9L , Mean Corpuscular Volume 92, Mean Corpuscular Hemoglobin 28.9, Mean Corpuscular Hemoglobin Concent 31.3L, Red Cell Distribution Width 12.5, Platelet Count 160, Mean Platelet Volume 10.7H, Neutrophils (%) (Auto) 61.3, Lymphocytes (%) (Auto) 25.1, Monocytes (%) (Auto) 8.7, Eosinophils (%) (Auto) 3.0, Basophils (%) (Auto) 1.9, Sodium Level 137, Potassium Level 4.3, Chloride Level 99, Carbon Dioxide Level 24, Anion Gap 14, Blood Urea Nitrogen 30H, Creatinine 1.3H, Estimat Glomerular Filtration Rate > 60, Glucose Level 130H, Calcium Level 8.1L Height (Feet): 6 Height (Inches): 1.00 Weight (Pounds): 240 Objective exam stable RODSONIA MEDINA Aug 06, 2016 10:05
[2016-08-06 10:33] LABS: CORTISOL 6.3 ug/dL
--- NOTE | 2016-08-06 10:56 | Consultation ---
Consult Note Consult Note asked to evaluate at the request of Dr Kruger for renal failure The patient is a 79-year-old male with a history of benign prostatic hypertrophy, who presents with chief complaint of decreased urine flow. The patient was admitted for urinary outlet obstruction. PAST MEDICAL HISTORY: 1. Type 2 diabetes. 2. Hypertension. 3. Chronic obstructive pulmonary disease. 4. Benign prostatic hypertrophy. PAST SURGICAL HISTORY: Significant for: 1. Left total hip replacement. 2. Lumbar surgery. 3. Cervical spine surgery x2. CURRENT MEDICATIONS: per record PHYSICAL EXAMINATION: VITAL SIGNS: Temperature 98.2, respirations 20, pulse 82, and blood pressure 181/85 GENERAL: The patient is well-developed and well-nourished male, in no apparent distress. HEENT: Eyes, pupils are equal and responsive to light and accommodation. Extraocular moves are intact. NECK: Supple without lymphadenopathy. CHEST: Lungs are clear to auscultation bilaterally without wheezes or rales. CARDIOVASCULAR: Regular rhythm and rate. S1 and S2 normal without murmurs, rubs, or gallops. ABDOMEN: Soft, nontender, and nondistended with positive bowel sounds. No evidence of hepatosplenomegaly currently. No rebound or guarding. EXTREMITIES: Negative for clubbing, cyanosis, or edema. RECTAL/GENITAL: Refused. NEUROLOGIC: Cranial nerves II through XII are grossly intact without focal deficits. Motor strength is 5/5 bilaterally. Deep tendon reflexes are 2+ plantar. LABORATORY STUDIES: WBC 9.5, hemoglobin 11.6, hematocrit 36.3, and platelets 222,000. Sodium 139, potassium 3.8, chloride 97, CO2 26, BUN 18, creatinine 1.4, and glucose 206. . Assessment/Plan ASSESSMENT: This is a 71-year-old male with: Acute renal failure likely mixed pre renal and Renal 1. Urinary outlet obstruction. 2. Benign prostatic hypertrophy. 3. 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 Hypertension. leading to hypertensive nephropathy 5. Chronic obstructive pulmonary disease. TREATMENT: Uro eval- keep BP and BS in check- Monitor renal parameters- avoid nephrotoxics- add Procardiaxl for bp control ANGELITA WINN Aug 06, 2016 10:55
[2016-08-06 12:02] VITALS: BP 184/81
[2016-08-06] MEDS: Losartan 50mg tab ORAL SCH (12:38)
--- NOTE | 2016-08-06 14:40 | Diagnostic Imaging Report ---
Indication:Elevated Bun and Creatinine. Technique: Grayscale and duplex Doppler imaging of the kidneys performed. Comparison: None Findings: The size, contour, and echogenicity of both kidneys are within normal limits. Both kidneys are 11-11.5 CM in length. There is no hydronephrosis. The IVC and urinary bladder are unremarkable. Mcnair catheter noted. Impression: Negative exam
[2016-08-06 16:00] VITALS: BP 150/79
--- NOTE | 2016-08-06 17:19 | Pulmonology Progress Note ---
Assessment/Plan Problems: (1) COPD (chronic obstructive pulmonary disease) (2) Purulent bronchitis (3) COPD exacerbation (4) UTI (urinary tract infection) (5) Renal failure (6) HTN (hypertension) Assessment/Plan improving respiratory treatment f/u urine c/s bp better Subjective ROS Limited/Unobtainable: No Interval Events: feeling better Constitutional: Reports: no symptoms Allergies: Coded Allergies: NO KNOWN ALLERGIES (Unverified Allergy, Unknown, 08/04/16) Objective Last 24 Hour Vital Signs Date Time Temp Pulse Resp B/P Pulse Ox O2 Delivery O2 Flow Rate FiO2 08/06/16 16:00 98.8 80 19 150/79 97 Room Air 08/06/16 13:01 97.7 08/06/16 13:01 97.7 08/06/16 12:38 184/81 08/06/16 12:30 76 184/81 08/06/16 12:30 184/81 08/06/16 12:02 97.7 76 22 184/81 97 Room Air 08/06/16 08:38 97.7 81 18 181/85 98 Room Air 08/06/16 08:20 175/89 08/06/16 08:20 175/89 08/06/16 07:56 81 17 100 Room Air 21 08/06/16 07:41 21 08/06/16 07:41 78 16 95 Room Air 21 08/06/16 04:36 175/89 08/06/16 04:00 97.5 74 18 175/89 93 Room Air 08/06/16 00:43 Room Air 08/06/16 00:42 Room Air 08/05/16 22:04 170/76 08/05/16 20:00 98.4 84 20 170/76 93 Room Air 08/05/16 19:45 76 18 98 Room Air 21 08/05/16 19:28 79 18 95 Room Air 21 Intake and Output 08/05/16 08/06/16 19:00 07:00 Intake Total 1400 ml 1125 ml Output Total 350 ml 1050 ml Balance 1050 ml 75 ml Intake Oral 700 ml 225 ml IV Total 700 ml 900 ml Output Urine Total 350 ml 1050 ml General Appearance: WD/WN HEENT: normocephalic, atraumatic Respiratory/Chest: chest wall non-tender, lungs clear Cardiovascular: normal peripheral pulses, normal rate Abdomen: normal bowel sounds, soft, non tender Extremities: no cyanosis Neurologic/Psychiatric: 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-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 grossly normal Microbiology Date/Time Source Procedure Growth Status 08/04/16 05:35 Urine,Clean Catch Urine Culture - Preliminary NO GROWTH Resulted Laboratory Tests 08/06/16 06:15: White Blood Count 7.4, Red Blood Count 3.78L, Hemoglobin 10.9L, Hematocrit 34.9L , Mean Corpuscular Volume 92, Mean Corpuscular Hemoglobin 28.9, Mean Corpuscular Hemoglobin Concent 31.3L, Red Cell Distribution Width 12.5, Platelet Count 160, Mean Platelet Volume 10.7H, Neutrophils (%) (Auto) 61.3, Lymphocytes (%) (Auto) 25.1, Monocytes (%) (Auto) 8.7, Eosinophils (%) (Auto) 3.0, Basophils (%) (Auto) 1.9, Sodium Level 137, Potassium Level 4.3, Chloride Level 99, Carbon Dioxide Level 24, Anion Gap 14, Blood Urea Nitrogen 30H, Creatinine 1.3H, Estimat Glomerular Filtration Rate > 60, Glucose Level 130H, Calcium Level 8.1L Current Medications Medications (Trade) Dose Ordered Sig/Ana Route PRN Reason Start Time Stop Time Status Last Admin Dose Admin Acetaminophen/ Hydrocodone Bitart ([place] 5/325) 1 tab Q6H PRN ORAL Mild Pain (Pain Scale 1-3) 08/05/16 16:26 08/11/16 20:29 Acetaminophen/ Hydrocodone Bitart ([place] 7.5/325) 1 ea EVERY 6 HOURS PRN ORAL Moderate Pain (Pain Scale 4-6) 08/05/16 16:26 08/11/16 20:29 Albuterol/ Ipratropium (DuoNeb 0.5-3(2.5)mg/3ml) 3 ml Q4HRT PRN HHN Shortness of Breath 08/04/16 17:45 08/09/16 17:44 08/05/16 11:45 Albuterol/ Ipratropium (DuoNeb 0.5-3(2.5)mg/3ml) 3 ml Q6HRT HHN 08/05/16 19:00 08/10/16 18:59 08/06/16 13:16 Atorvastatin Calcium (Lipitor) 20 mg BEDTIME ORAL 08/04/16 21:00 09/03/16 20:59 08/05/16 22:03 Ceftriaxone Sodium/Dextrose (Rocephin/D5W 50ml) 55 ml @ 100 mls/hr Q24H IVPB 08/05/16 09:00 08/12/16 08:59 08/06/16 08:19 Clonidine HCl (Catapres) 0.1 mg Q4H PRN ORAL For High Blood Pressure 08/05/16 21:15 09/04/16 21:14 08/06/16 08:20 Dextrose (Dextrose 50%) STAT PRN IV Hypoglycemia 08/04/16 17:45 09/03/16 17:44 Docusate Sodium (Colace) 100 mg THREE TIMES A DAY ORAL 08/05/16 18:00 09/04/16 17:59 08/06/16 12:30 Finasteride (Proscar) 5 mg DAILY ORAL 08/05/16 09:30 09/04/16 09:29 08/06/16 08:23 Gabapentin (Neurontin) 600 mg THREE TIMES A DAY ORAL 08/05/16 10:15 09/04/16 10:14 08/06/16 12:30 Hydralazine HCl (Apresoline) 100 mg TID ORAL 08/04/16 18:00 09/03/16 17:59 08/06/16 12:30 Insulin Aspart (NovoLOG) BEFORE MEALS AND HS SUBQ 08/04/16 21:00 09/03/16 20:59 08/06/16 12:41 Insulin Detemir (Levemir) 5 units DAILY SUBQ 08/04/16 17:45 09/03/16 17:44 08/06/16 08:29 Lactulose (Cephulac) 30 gm THREE TIMES A DAY ORAL 08/05/16 18:00 09/04/16 17:59 Losartan Potassium (Cozaar) 100 mg DAILY ORAL 08/05/16 21:30 09/04/16 21:29 08/06/16 12:38 Mineral Oil (Fleet's Mineral Oil Enema) 133 ml EVERY OTHER DAY RECTAL 08/07/16 09:00 09/06/16 08:59 Morphine Sulfate (Morphine Sulfate) 4 mg Q4H PRN IV Severe Pain (Pain Scale 7-10) 08/05/16 16:15 1/23/17 16:14 08/06/16 12:31 Nifedipine (Procardia XL) 30 mg Q12H ORAL 08/06/16 18:00 09/05/16 17:59 Ondansetron HCl 4 mg 4 mg Q4HR PRN IVP Nausea & Vomiting 08/04/16 19:00 09/03/16 18:59 Polyethylene Glycol (Miralax) 17 gm BEDTIME ORAL 08/05/16 21:00 09/04/16 20:59 Promethazine HCl/ Codeine (Phenergan with Codeine) 5 ml Q4H PRN ORAL For Cough 08/05/16 16:15 09/04/16 16:14 Sennosides (Senokot) 8.6 mg DAILY ORAL 08/06/16 09:00 09/05/16 08:59 08/06/16 08:20 Sodium Chloride (Sodium Chloride 1000ml bag) 1,000 ml @ 75 mls/hr [id number] IV 08/04/16 17:45 09/03/16 17:44 08/06/16 12:31 Tamsulosin HCl (Flomax) 0.8 mg BEDTIME ORAL 08/04/16 21:00 09/03/16 20:59 08/05/16 22:03 KALEIGH SCHULER Aug 06, 2016 17:19
--- NOTE | 2016-08-06 19:26 | Internal Med Progress Note ---
Subjective Date of Service: Aug 06, 2016 Physician Name Chiu,Adeola Attending Physician Jake Kruger MD Current Medications Medications (Trade) Dose Ordered Sig/Ana Route PRN Reason Start Time Stop Time Status Last Admin Dose Admin Acetaminophen/ Hydrocodone Bitart ([place] 5/325) 1 tab Q6H PRN ORAL Mild Pain (Pain Scale 1-3) 08/05/16 16:26 08/11/16 20:29 Acetaminophen/ Hydrocodone Bitart ([place] 7.5/325) 1 ea EVERY 6 HOURS PRN ORAL Moderate Pain (Pain Scale 4-6) 08/05/16 16:26 08/11/16 20:29 Albuterol/ Ipratropium (DuoNeb 0.5-3(2.5)mg/3ml) 3 ml Q4HRT PRN HHN Shortness of Breath 08/04/16 17:45 08/09/16 17:44 08/05/16 11:45 Albuterol/ Ipratropium (DuoNeb 0.5-3(2.5)mg/3ml) 3 ml Q6HRT HHN 08/05/16 19:00 08/10/16 18:59 08/06/16 13:16 Atorvastatin Calcium (Lipitor) 20 mg BEDTIME ORAL 08/04/16 21:00 09/03/16 20:59 08/05/16 22:03 Ceftriaxone Sodium/Dextrose (Rocephin/D5W 50ml) 55 ml @ 100 mls/hr Q24H IVPB 08/05/16 09:00 08/12/16 08:59 08/06/16 08:19 Clonidine HCl (Catapres) 0.1 mg Q4H PRN ORAL For High Blood Pressure 08/05/16 21:15 09/04/16 21:14 08/06/16 08:20 Dextrose (Dextrose 50%) STAT PRN IV Hypoglycemia 08/04/16 17:45 09/03/16 17:44 Docusate Sodium (Colace) 100 mg THREE TIMES A DAY ORAL 08/05/16 18:00 09/04/16 17:59 08/06/16 18:06 Finasteride (Proscar) 5 mg DAILY ORAL 08/05/16 09:30 09/04/16 09:29 08/06/16 08:23 Gabapentin (Neurontin) 600 mg THREE TIMES A DAY ORAL 08/05/16 10:15 09/04/16 10:14 08/06/16 18:06 Hydralazine HCl (Apresoline) 100 mg TID ORAL 08/04/16 18:00 09/03/16 17:59 08/06/16 18:06 Insulin Aspart (NovoLOG) BEFORE MEALS AND HS SUBQ 08/04/16 21:00 09/03/16 20:59 08/06/16 17:38 Insulin Detemir (Levemir) 5 units DAILY SUBQ 08/04/16 17:45 09/03/16 17:44 08/06/16 08:29 Lactulose (Cephulac) 30 gm THREE TIMES A DAY ORAL 08/05/16 18:00 09/04/16 17:59 Losartan Potassium (Cozaar) 100 mg DAILY ORAL 08/05/16 21:30 09/04/16 21:29 08/06/16 12:38 Mineral Oil (Fleet's Mineral Oil Enema) 133 ml EVERY OTHER DAY RECTAL 08/07/16 09:00 09/06/16 08:59 Morphine Sulfate (Morphine Sulfate) 4 mg Q4H PRN IV Severe Pain (Pain Scale 7-10) 08/05/16 16:15 08/12/16 16:14 08/06/16 17:35 Nifedipine (Procardia XL) 30 mg Q12H ORAL 08/06/16 18:00 09/05/16 17:59 08/06/16 18:07 Ondansetron HCl 4 mg 4 mg Q4HR PRN IVP Nausea & Vomiting 08/04/16 19:00 09/03/16 18:59 Polyethylene Glycol (Miralax) 17 gm BEDTIME ORAL 08/05/16 21:00 09/04/16 20:59 Promethazine HCl/ Codeine (Phenergan with Codeine) 5 ml Q4H PRN ORAL For Cough 08/05/16 16:15 09/04/16 16:14 Sennosides (Senokot) 8.6 mg DAILY ORAL 08/06/16 09:00 09/05/16 08:59 08/06/16 08:20 Sodium Chloride (Sodium Chloride 1000ml bag) 1,000 ml @ 75 mls/hr [id number] IV 08/04/16 17:45 09/03/16 17:44 08/06/16 12:31 Tamsulosin HCl (Flomax) 0.8 mg BEDTIME ORAL 08/04/16 21:00 09/03/16 20:59 08/05/16 22:03 Allergies: Coded Allergies: NO KNOWN ALLERGIES (Unverified Allergy, Unknown, 08/04/16) ROS Limited/Unobtainable: No Constitutional: Reports: no symptoms HEENT: Reports: no symptoms Cardiovascular: Reports: no symptoms Respiratory: Reports: no symptoms Gastrointestinal/Abdominal: Reports: no symptoms Genitourinary: Reports: no symptoms Neurologic/Psychiatric: Reports: no symptoms Subjective 71 YO M admitted with urine outlet obstruction. Cover for Int [facility]-Dr Kruger. Objective Last Vital Signs Date Time Temp Pulse Resp B/P Pulse Ox O2 Delivery O2 Flow Rate FiO2 08/06/16 18:07 83 170/75 08/06/16 18:05 98.8 08/06/16 16:00 19 97 Room Air 08/06/16 13:31 21 Laboratory Tests Test 08/06/16 06:15 White Blood Count 7.4 K/UL (4.8-10.8) Red Blood Count 3.78 M/UL (4.70-6.10) L Hemoglobin 10.9 G/DL (14.2-18.0) L Hematocrit 34.9 % (42.0-52.0) L Mean Corpuscular Volume 92 FL (80-99) Mean Corpuscular Hemoglobin 28.9 PG (27.0-31.0) Mean Corpuscular Hemoglobin Concent 31.3 G/DL (32.0-36.0) L Red Cell Distribution Width 12.5 % (11.6-14.8) Platelet Count 160 K/UL (150-450) Mean Platelet Volume 10.7 FL (6.5-10.1) H Neutrophils (%) (Auto) 61.3 % (45.0-75.0) Lymphocytes (%) (Auto) 25.1 % (20.0-45.0) Monocytes (%) (Auto) 8.7 % (1.0-10.0) Eosinophils (%) (Auto) 3.0 % (0.0-3.0) Basophils (%) (Auto) 1.9 % (0.0-2.0) Sodium Level 137 mEQ/L (135-145) Potassium Level 4.3 mEQ/L (3.4-4.9) Chloride Level 99 mEQ/L (98-107) Carbon Dioxide Level 24 mEQ/L (20-30) Anion Gap 14 (5-15) Blood Urea Nitrogen 30 mg/dL (7-23) H Creatinine 1.3 mg/dL (0.7-1.2) H Estimat Glomerular Filtration Rate > 60 mL/min (>60) Glucose Level 130 mg/dL (74-106) H Calcium Level 8.1 mg/dL (8.6-10.2) L Microbiology Date/Time Source Procedure Growth Status 08/04/16 05:35 Urine,Clean Catch Urine Culture - Preliminary NO GROWTH Resulted Intake and Output 08/05/16 08/06/16 19:00 07:00 Intake Total 1400 ml 1125 ml Output Total 350 ml 1050 ml Balance 1050 ml 75 ml Intake Oral 700 ml 225 ml IV Total 700 ml 900 ml Output Urine Total 350 ml 1050 ml Objective General Appearance: WD/WN, no apparent distress, alert EENT: PERRL/EOMI, normal ENT inspection Neck: non-tender, normal alignment, supple Cardiovascular: normal peripheral pulses, normal rate, regular rhythm, no gallop/murmur, no JVD Respiratory/Chest: chest wall non-tender, lungs clear, normal breath sounds, no respiratory distress, no accessory muscle use Abdomen: normal bowel sounds, non tender, soft, no organomegaly, no mass Extremities: normal range of motion 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 Clonidine prn (2) Decreased urine output (3) Acute urinary retention Assessment & Plan: See urology note. Cont weir for now; voiding trial possible tomorrow (4) Diabetes mellitus Assessment & Plan: Cont novolog sliding scale. (5) COPD (chronic obstructive pulmonary disease) (6) BPH (benign prostatic hypertrophy) Assessment & Plan: Cont flomax (7) Neurogenic bladder Status: not improved ADEOLA CHIU Aug 06, 2016 19:26
[2016-08-06 20:06] VITALS: BP 196/82
[2016-08-06 21:50] VITALS: BP 154/72
[2016-08-06] MEDS: Miralax 17gm pkt ORAL SCH (21:56)
[2016-08-06] MEDS: Atorvastatin 20mg tab ORAL SCH (21:56)
[2016-08-06] MEDS: Tamsulosin 0.4mg cap ORAL SCH (21:56)
[2016-08-07] VITALS (7 sets, daily range): BP systolic 152–172; BP diastolic 78–86
[2016-08-07] MEDS: DuoNeb 0.5-3(2.5)mg/3ml neb HHN SCH ×4 (01:34→19:44)
[2016-08-07] MEDS: NovoLOG Insulin Flexpen SUBQ SCH ×4 (06:24→22:17)
[2016-08-07 06:30] LABS: LYMPHOCYTES % (AUTO) 22.8 % (20.0-45.0); MEAN CORPUSCULAR HGB CONC 31.5 G/DL (32.0-36.0); MEAN CORPUSCULAR VOLUME 92 FL (80-99); MEAN PLATELET VOLUME 9.9 FL (6.5-10.1); MONOCYTES % (AUTO) 12.7 % (1.0-10.0); NEUTROPHILS % (AUTO) 57.5 % (45.0-75.0); PLATELET COUNT 176 K/UL (150-450); RED BLOOD COUNT 3.43 M/UL (4.70-6.10); RED CELL DISTRIBUTION WIDTH 12.4 % (11.6-14.8); WHITE BLOOD COUNT 8.1 K/UL (4.8-10.8)
[2016-08-07 07:12] LABS: HEMOGLOBIN A1C 6.6 % (< 6.0)
[2016-08-07 07:13] LABS: ALANINE AMINOTRANSFERASE 10 U/L (3-41); ALBUMIN/GLOBULIN RATIO 0.7 (1.0-2.7); ANION GAP 12 (5-15); ASPARTATE AMINO TRANSFERASE 18 U/L (5-40); CALCIUM 8.1 mg/dL (8.6-10.2); CARBON DIOXIDE 24 mEQ/L (20-30); CHLORIDE 100 mEQ/L (98-107); CHOLESTEROL 116 mg/dL (< 200); CHOLESTEROL/HDL RATIO 2.4 (3.3-4.4); CREATININE 1.1 mg/dL (0.7-1.2); CRP QUANT 1.6 mg/dL (< 0.5); GLOMERULAR FILTRATION RATE > 60 mL/min (>60); HEMOLYSIS 7; LDL CHOLESTEROL (CALC.) 53 mg/dL (60-99); MAGNESIUM 1.8 mg/dL (1.7-2.5); PHOSPHORUS 3.2 mg/dL (2.5-4.8); POTASSIUM 4.3 mEQ/L (3.4-4.9); SODIUM 136 mEQ/L (135-145); TOTAL PROTEIN 5.8 g/dL (6.6-8.7); URIC ACID 6.8 mg/dL (3.0-7.5)
[2016-08-07] MEDS: cefTRIAXone 1 GM in D5W 55 ML IVPB SCH (08:16)
[2016-08-07] MEDS: Lactulose 20gm/30ml UDC ORAL SCH ×3 (08:18→18:52)
[2016-08-07] MEDS: HydrALAZINE 25mg tab ORAL SCH ×3 (08:19→18:53)
[2016-08-07] MEDS: Morphine Sulfate 4mg/ml Inj IV PRN ×4 (08:19→22:12)
[2016-08-07] MEDS: Fleet's Mineral Oil Enema RECTAL SCH (08:20)
[2016-08-07] MEDS: Losartan 50mg tab ORAL SCH (08:20)
[2016-08-07] MEDS: Docusate 100mg cap ORAL SCH ×3 (08:20→18:52)
[2016-08-07] MEDS: Levemir Flexpen SUBQ SCH (08:32)
--- NOTE | 2016-08-07 12:22 | Internal Med Progress Note ---
Subjective Date of Service: Aug 07, 2016 Physician Name FiorAdeola Attending Physician Jake Kruger MD Current Medications Medications (Trade) Dose Ordered Sig/Ana Route PRN Reason Start Time Stop Time Status Last Admin Dose Admin Acetaminophen/ Hydrocodone Bitart ([place] 5/325) 1 tab Q6H PRN ORAL Mild Pain (Pain Scale 1-3) 08/05/16 16:26 08/11/16 20:29 Acetaminophen/ Hydrocodone Bitart ([place] 7.5/325) 1 ea EVERY 6 HOURS PRN ORAL Moderate Pain (Pain Scale 4-6) 08/05/16 16:26 08/11/16 20:29 Albuterol/ Ipratropium (DuoNeb 0.5-3(2.5)mg/3ml) 3 ml Q4HRT PRN HHN Shortness of Breath 08/04/16 17:45 08/09/16 17:44 08/05/16 11:45 Albuterol/ Ipratropium (DuoNeb 0.5-3(2.5)mg/3ml) 3 ml Q6HRT HHN 08/05/16 19:00 08/10/16 18:59 08/07/16 12:04 Atorvastatin Calcium (Lipitor) 20 mg BEDTIME ORAL 08/04/16 21:00 09/03/16 20:59 08/06/16 21:56 Ceftriaxone Sodium/Dextrose (Rocephin/D5W 50ml) 55 ml @ 100 mls/hr Q24H IVPB 08/05/16 09:00 08/12/16 08:59 08/07/16 08:16 Clonidine HCl (Catapres) 0.1 mg Q4H PRN ORAL For High Blood Pressure 08/05/16 21:15 09/04/16 21:14 08/07/16 04:09 Dextrose (Dextrose 50%) STAT PRN IV Hypoglycemia 08/04/16 17:45 09/03/16 17:44 Docusate Sodium (Colace) 100 mg THREE TIMES A DAY ORAL 08/05/16 18:00 09/04/16 17:59 08/07/16 11:35 Finasteride (Proscar) 5 mg DAILY ORAL 08/05/16 09:30 09/04/16 09:29 08/07/16 08:17 Gabapentin (Neurontin) 600 mg THREE TIMES A DAY ORAL 08/05/16 10:15 09/04/16 10:14 08/07/16 11:36 Hydralazine HCl (Apresoline) 100 mg TID ORAL 08/04/16 18:00 09/03/16 17:59 08/07/16 11:35 Insulin Aspart (NovoLOG) BEFORE MEALS AND HS SUBQ 08/04/16 21:00 09/03/16 20:59 08/07/16 11:38 Insulin Detemir (Levemir) 5 units DAILY SUBQ 08/04/16 17:45 09/03/16 17:44 08/07/16 08:32 Lactulose (Cephulac) 30 gm THREE TIMES A DAY ORAL 08/05/16 18:00 09/04/16 17:59 08/07/16 08:18 Losartan Potassium (Cozaar) 100 mg DAILY ORAL 08/05/16 21:30 09/04/16 21:29 08/07/16 08:20 Mineral Oil (Fleet's Mineral Oil Enema) 133 ml EVERY OTHER DAY RECTAL 08/07/16 09:00 09/06/16 08:59 Morphine Sulfate (Morphine Sulfate) 4 mg Q4H PRN IV Severe Pain (Pain Scale 7-10) 08/05/16 16:15 08/12/16 16:14 08/07/16 08:19 Nifedipine (Procardia XL) 60 mg Q12H ORAL 08/07/16 06:00 09/06/16 05:59 08/07/16 06:22 Ondansetron HCl 4 mg 4 mg Q4HR PRN IVP Nausea & Vomiting 08/04/16 19:00 09/03/16 18:59 Polyethylene Glycol (Miralax) 17 gm BEDTIME ORAL 08/05/16 21:00 09/04/16 20:59 08/06/16 21:56 Promethazine HCl/ Codeine (Phenergan with Codeine) 5 ml Q4H PRN ORAL For Cough 08/05/16 16:15 09/04/16 16:14 Sennosides (Senokot) 8.6 mg DAILY ORAL 08/06/16 09:00 09/05/16 08:59 08/07/16 08:18 Sodium Chloride (Sodium Chloride 1000ml bag) 1,000 ml @ 75 mls/hr [id number] IV 08/04/16 17:45 09/03/16 17:44 08/06/16 12:31 Tamsulosin HCl (Flomax) 0.8 mg BEDTIME ORAL 08/04/16 21:00 09/03/16 20:59 08/06/16 21:56 Allergies: Coded Allergies: NO KNOWN ALLERGIES (Unverified Allergy, Unknown, 08/04/16) ROS Limited/Unobtainable: No Constitutional: Reports: no symptoms HEENT: Reports: no symptoms Cardiovascular: Reports: no symptoms Respiratory: Reports: no symptoms Gastrointestinal/Abdominal: Reports: no symptoms Genitourinary: Reports: burning, urgency Neurologic/Psychiatric: Reports: no symptoms Subjective 71 YO M admitted with urine outlet obstruction. Cover for Int [facility]-Dr Kruger. Objective Last Vital Signs Date Time Temp Pulse Resp B/P Pulse Ox O2 Delivery O2 Flow Rate FiO2 08/07/16 12:12 100 18 99 Room Air 21 08/07/16 11:51 98.2 167/80 Laboratory Tests Test 08/07/16 00:00 08/07/16 05:20 Urine Osmolality Pending White Blood Count 8.1 K/UL (4.8-10.8) Red Blood Count 3.43 M/UL (4.70-6.10) L Hemoglobin 9.9 G/DL (14.2-18.0) L Hematocrit 31.5 % (42.0-52.0) L Mean Corpuscular Volume 92 FL (80-99) Mean Corpuscular Hemoglobin 29.0 PG (27.0-31.0) Mean Corpuscular Hemoglobin Concent 31.5 G/DL (32.0-36.0) L Red Cell Distribution Width 12.4 % (11.6-14.8) Platelet Count 176 K/UL (150-450) Mean Platelet Volume 9.9 FL (6.5-10.1) Neutrophils (%) (Auto) 57.5 % (45.0-75.0) Lymphocytes (%) (Auto) 22.8 % (20.0-45.0) Monocytes (%) (Auto) 12.7 % (1.0-10.0) H Eosinophils (%) (Auto) 5.0 % (0.0-3.0) H Basophils (%) (Auto) 2.0 % (0.0-2.0) Sodium Level 136 mEQ/L (135-145) Potassium Level 4.3 mEQ/L (3.4-4.9) Chloride Level 100 mEQ/L (98-107) Carbon Dioxide Level 24 mEQ/L (20-30) Anion Gap 12 (5-15) Blood Urea Nitrogen 26 mg/dL (7-23) H Creatinine 1.1 mg/dL (0.7-1.2) Estimat Glomerular Filtration Rate > 60 mL/min (>60) Glucose Level 161 mg/dL (74-106) H Hemoglobin A1c 6.6 % (< 6.0) H Uric Acid 6.8 mg/dL (3.0-7.5) Calcium Level 8.1 mg/dL (8.6-10.2) L Phosphorus Level 3.2 mg/dL (2.5-4.8) Magnesium Level 1.8 mg/dL (1.7-2.5) Total Bilirubin 0.4 mg/dL (0.0-1.2) Gamma Glutamyl Transpeptidase 94 U/L (8-61) H Aspartate Amino Transf (AST/SGOT) 18 U/L (5-40) Alanine Aminotransferase (ALT/SGPT) 10 U/L (3-41) Alkaline Phosphatase 58 U/L (40-129) C-Reactive Protein, Quantitative 1.6 mg/dL (< 0.5) H Pro-B-Type Natriuretic Peptide 112 pg/mL (0-125) Total Protein 5.8 g/dL (6.6-8.7) L Albumin 2.5 g/dL (3.5-5.2) L Globulin 3.3 g/dL Albumin/Globulin Ratio 0.7 (1.0-2.7) L Triglycerides Level 74 mg/dL (< 150) Cholesterol Level 116 mg/dL (< 200) LDL Cholesterol 53 mg/dL (60-99) L HDL Cholesterol 48 mg/dL (> 60) Cholesterol/HDL Ratio 2.4 (3.3-4.4) L Intake and Output 08/06/16 08/07/16 19:00 07:00 Intake Total 1210 ml 1145 ml Output Total 1225 ml Balance 1210 ml -80 ml Intake Oral 760 ml 620 ml IV Total 450 ml 525 ml Output Urine Total 1225 ml Objective General Appearance: WD/WN, no apparent distress, alert EENT: PERRL/EOMI, normal ENT inspection Neck: non-tender, normal alignment, supple Cardiovascular: normal peripheral pulses, normal rate, regular rhythm, no gallop/murmur, no JVD Respiratory/Chest: chest wall non-tender, lungs clear, normal breath sounds, no respiratory distress, no accessory muscle use Abdomen: normal bowel sounds, non tender, soft, no organomegaly, no mass Extremities: normal range of motion 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 Clonidine prn (2) Decreased urine output (3) Acute urinary retention Assessment & Plan: See urology note. Cont voiding trial per Urology (4) Diabetes mellitus Assessment & Plan: Cont novolog sliding scale. (5) COPD (chronic obstructive pulmonary disease) (6) BPH (benign prostatic hypertrophy) Assessment & Plan: Cont flomax (7) Neurogenic bladder (8) Renal failure Assessment & Plan: Improving; see nephrology note. ADEOLA CHIU Aug 07, 2016 12:22
--- NOTE | 2016-08-07 12:49 | Urology Progress Note ---
Assessment/Plan Assessment/Plan 1. Urinary retention. 2. Benign prostatic hypertrophy. 3. Probable neurogenic bladder. 4. Renal insufficiency, which is acute on chronic. 5. Hematuria. 6. Pyuria. 7. Possible chronic prostatitis. 8. Proteinuria. cont flomax and proscar abx as ordered f/u on urine cx voiding trial today Subjective Allergies: Coded Allergies: NO KNOWN ALLERGIES (Unverified Allergy, Unknown, 08/04/16) Subjective no new complaints Objective Last 24 Hour Vital Signs Date Time Temp Pulse Resp B/P Pulse Ox O2 Delivery O2 Flow Rate FiO2 08/07/16 11:51 98.2 94 20 167/80 95 Room Air 08/07/16 11:35 162/82 08/07/16 08:49 97.8 08/07/16 08:49 97.8 08/07/16 08:33 97.8 91 22 162/82 96 Room Air 08/07/16 08:20 154/78 08/07/16 08:19 154/78 08/07/16 07:40 115 18 99 Room Air 21 08/07/16 07:30 21 08/07/16 07:30 120 22 96 Room Air 21 08/07/16 06:22 69 154/78 08/07/16 04:09 172/86 08/07/16 04:00 97.6 76 18 172/86 97 Room Air 08/07/16 01:30 21 08/07/16 01:30 72 18 97 Room Air 21 08/07/16 01:30 73 18 99 Room Air 21 08/07/16 00:00 97.3 77 18 152/78 97 Room Air 08/06/16 21:50 154/72 08/06/16 20:45 76 18 99 Room Air 21 08/06/16 20:45 21 08/06/16 20:45 79 18 96 Room Air 21 08/06/16 20:06 98.4 100 18 196/82 99 Room Air 08/06/16 19:38 198/84 08/06/16 18:07 83 170/75 08/06/16 18:06 170/75 08/06/16 16:00 98.8 80 19 150/79 97 Room Air 08/06/16 13:31 80 18 100 Room Air 21 08/06/16 13:16 21 08/06/16 13:16 78 20 95 Room Air 21 Intake and Output 08/06/16 08/07/16 19:00 07:00 Intake Total 1210 ml 1145 ml Output Total 1225 ml Balance 1210 ml -80 ml Intake Oral 760 ml 620 ml IV Total 450 ml 525 ml Output Urine Total 1225 ml Microbiology Date/Time Source Procedure Growth Status 08/04/16 05:35 Urine,Clean Catch Urine Culture - Preliminary NO GROWTH AFTER 24 HOURS Resulted Current Medications Medications (Trade) Dose Ordered Sig/Ana Route PRN Reason Start Time Stop Time Status Last Admin Dose Admin Acetaminophen/ Hydrocodone Bitart ([place] 5/325) 1 tab Q6H PRN ORAL Mild Pain (Pain Scale 1-3) 08/05/16 16:26 08/11/16 20:29 Acetaminophen/ Hydrocodone Bitart ([place] 7.5/325) 1 ea EVERY 6 HOURS PRN ORAL Moderate Pain (Pain Scale 4-6) 08/05/16 16:26 08/11/16 20:29 Albuterol/ Ipratropium (DuoNeb 0.5-3(2.5)mg/3ml) 3 ml Q4HRT PRN HHN Shortness of Breath 08/04/16 17:45 08/09/16 17:44 08/05/16 11:45 Albuterol/ Ipratropium (DuoNeb 0.5-3(2.5)mg/3ml) 3 ml Q6HRT HHN 08/05/16 19:00 08/10/16 18:59 08/07/16 07:35 Atorvastatin Calcium (Lipitor) 20 mg BEDTIME ORAL 08/04/16 21:00 09/03/16 20:59 08/06/16 21:56 Ceftriaxone Sodium/Dextrose (Rocephin/D5W 50ml) 55 ml @ 100 mls/hr Q24H IVPB 08/05/16 09:00 08/12/16 08:59 08/07/16 08:16 Clonidine HCl (Catapres) 0.1 mg Q4H PRN ORAL For High Blood Pressure 08/05/16 21:15 09/04/16 21:14 08/07/16 04:09 Dextrose (Dextrose 50%) STAT PRN IV Hypoglycemia 08/04/16 17:45 09/03/16 17:44 Docusate Sodium (Colace) 100 mg THREE TIMES A DAY ORAL 08/05/16 18:00 09/04/16 17:59 08/07/16 11:35 Finasteride (Proscar) 5 mg DAILY ORAL 08/05/16 09:30 09/04/16 09:29 08/07/16 08:17 Gabapentin (Neurontin) 600 mg THREE TIMES A DAY ORAL 08/05/16 10:15 09/04/16 10:14 08/07/16 11:36 Hydralazine HCl (Apresoline) 100 mg TID ORAL 08/04/16 18:00 09/03/16 17:59 08/07/16 11:35 Insulin Aspart (NovoLOG) BEFORE MEALS AND HS SUBQ 08/04/16 21:00 09/03/16 20:59 08/07/16 11:38 Insulin Detemir (Levemir) 5 units DAILY SUBQ 08/04/16 17:45 09/03/16 17:44 08/07/16 08:32 Lactulose (Cephulac) 30 gm THREE TIMES A DAY ORAL 08/05/16 18:00 09/04/16 17:59 08/07/16 08:18 Losartan Potassium (Cozaar) 100 mg DAILY ORAL 08/05/16 21:30 09/04/16 21:29 08/07/16 08:20 Mineral Oil (Fleet's Mineral Oil Enema) 133 ml EVERY OTHER DAY RECTAL 08/07/16 09:00 09/06/16 08:59 Morphine Sulfate (Morphine Sulfate) 4 mg Q4H PRN IV Severe Pain (Pain Scale 7-10) 08/05/16 16:15 08/12/16 16:14 08/07/16 08:19 Nifedipine (Procardia XL) 60 mg Q12H ORAL 08/07/16 06:00 09/06/16 05:59 08/07/16 06:22 Ondansetron HCl 4 mg 4 mg Q4HR PRN IVP Nausea & Vomiting 08/04/16 19:00 09/03/16 18:59 Polyethylene Glycol (Miralax) 17 gm BEDTIME ORAL 08/05/16 21:00 09/04/16 20:59 08/06/16 21:56 Promethazine HCl/ Codeine (Phenergan with Codeine) 5 ml Q4H PRN ORAL For Cough 08/05/16 16:15 09/04/16 16:14 Sennosides (Senokot) 8.6 mg DAILY ORAL 08/06/16 09:00 09/05/16 08:59 08/07/16 08:18 Sodium Chloride (Sodium Chloride 1000ml bag) 1,000 ml @ 75 mls/hr [id number] IV 08/04/16 17:45 09/03/16 17:44 08/06/16 12:31 Tamsulosin HCl (Flomax) 0.8 mg BEDTIME ORAL 08/04/16 21:00 09/03/16 20:59 08/06/16 21:56 Laboratory Tests 08/07/16 00:00: Urine Osmolality [Pending] 08/07/16 05:20: White Blood Count 8.1, Red Blood Count 3.43L, Hemoglobin 9.9L, Hematocrit 31.5L , Mean Corpuscular Volume 92, Mean Corpuscular Hemoglobin 29.0, Mean Corpuscular Hemoglobin Concent 31.5L, Red Cell Distribution Width 12.4, Platelet Count 176, Mean Platelet Volume 9.9, Neutrophils (%) (Auto) 57.5, Lymphocytes (%) (Auto) 22.8, Monocytes (%) (Auto) 12.7H, Eosinophils (%) (Auto) 5.0H, Basophils (%) (Auto) 2.0, Sodium Level 136, Potassium Level 4.3, Chloride Level 100, Carbon Dioxide Level 24, Anion Gap 12, Blood Urea Nitrogen 26H, Creatinine 1.1, Estimat Glomerular Filtration Rate > 60, Glucose Level 161H, Hemoglobin A1c 6.6H, Uric Acid 6.8, Calcium Level 8.1L, Phosphorus Level 3.2, Magnesium Level 1.8, Total Bilirubin 0.4, Gamma Glutamyl Transpeptidase 94H, Aspartate Amino Transf (AST/SGOT) 18, Alanine Aminotransferase (ALT/SGPT) 10, Alkaline Phosphatase 58, C-Reactive Protein, Quantitative 1.6H, Pro-B-Type Natriuretic Peptide 112, Total Protein 5.8L, Albumin 2.5L, Globulin 3.3, Albumin /Globulin Ratio 0.7L, Triglycerides Level 74, Cholesterol Level 116, LDL Cholesterol 53L, HDL Cholesterol 48, Cholesterol/HDL Ratio 2.4L Height (Feet): 6 Height (Inches): 1.00 Weight (Pounds): 240 Objective exam stable SONIA FRANKLIN Aug 07, 2016 12:49
--- NOTE | 2016-08-07 13:19 | General Progress Note ---
Assessment/Plan Status: stable Assessment/Plan Acute renal failure likely mixed pre renal and Renal- resolving- Cr 1.1 other: 1. Urinary outlet obstruction. UTI 2. Benign prostatic hypertrophy. 3. 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 Hypertension. leading to hypertensive nephropathy 5. Chronic obstructive pulmonary disease. Exacerbatio Plan: Per consultants- Monitor urine out put and renal parameters- Per orders- Subjective ROS Limited/Unobtainable: No Constitutional: Reports: malaise Allergies: Coded Allergies: NO KNOWN ALLERGIES (Unverified Allergy, Unknown, 08/04/16) Objective Last 24 Hour Vital Signs Date Time Temp Pulse Resp B/P Pulse Ox O2 Delivery O2 Flow Rate FiO2 08/07/16 12:35 98.2 08/07/16 12:35 98.2 08/07/16 12:12 100 18 99 Room Air 21 08/07/16 12:03 96 20 Room Air 21 08/07/16 11:51 98.2 94 20 167/80 95 Room Air 08/07/16 11:35 162/82 08/07/16 08:33 97.8 91 22 162/82 96 Room Air 08/07/16 08:20 154/78 08/07/16 08:19 154/78 08/07/16 07:40 115 18 99 Room Air 21 08/07/16 07:30 21 08/07/16 07:30 120 22 96 Room Air 21 08/07/16 06:22 69 154/78 08/07/16 04:09 172/86 08/07/16 04:00 97.6 76 18 172/86 97 Room Air 08/07/16 01:30 21 08/07/16 01:30 72 18 97 Room Air 21 08/07/16 01:30 73 18 99 Room Air 21 08/07/16 00:00 97.3 77 18 152/78 97 Room Air 08/06/16 21:50 154/72 08/06/16 20:45 76 18 99 Room Air 21 08/06/16 20:45 21 08/06/16 20:45 79 18 96 Room Air 21 08/06/16 20:06 98.4 100 18 196/82 99 Room Air 08/06/16 19:38 198/84 08/06/16 18:07 83 170/75 08/06/16 18:06 170/75 08/06/16 16:00 98.8 80 19 150/79 97 Room Air 08/06/16 13:31 80 18 100 Room Air 21 Intake and Output 08/06/16 08/07/16 19:00 07:00 Intake Total 1210 ml 1145 ml Output Total 1225 ml Balance 1210 ml -80 ml Intake Oral 760 ml 620 ml IV Total 450 ml 525 ml Output Urine Total 1225 ml Laboratory Tests 08/07/16 00:00: Urine Osmolality [Pending] 08/07/16 05:20: White Blood Count 8.1, Red Blood Count 3.43L, Hemoglobin 9.9L, Hematocrit 31.5L , Mean Corpuscular Volume 92, Mean Corpuscular Hemoglobin 29.0, Mean Corpuscular Hemoglobin Concent 31.5L, Red Cell Distribution Width 12.4, Platelet Count 176, Mean Platelet Volume 9.9, Neutrophils (%) (Auto) 57.5, Lymphocytes (%) (Auto) 22.8, Monocytes (%) (Auto) 12.7H, Eosinophils (%) (Auto) 5.0H, Basophils (%) (Auto) 2.0, Sodium Level 136, Potassium Level 4.3, Chloride Level 100, Carbon Dioxide Level 24, Anion Gap 12, Blood Urea Nitrogen 26H, Creatinine 1.1, Estimat Glomerular Filtration Rate > 60, Glucose Level 161H, Hemoglobin A1c 6.6H, Uric Acid 6.8, Calcium Level 8.1L, Phosphorus Level 3.2, Magnesium Level 1.8, Total Bilirubin 0.4, Gamma Glutamyl Transpeptidase 94H, Aspartate Amino Transf (AST/SGOT) 18, Alanine Aminotransferase (ALT/SGPT) 10, Alkaline Phosphatase 58, C-Reactive Protein, Quantitative 1.6H, Pro-B-Type Natriuretic Peptide 112, Total Protein 5.8L, Albumin 2.5L, Globulin 3.3, Albumin /Globulin Ratio 0.7L, Triglycerides Level 74, Cholesterol Level 116, LDL Cholesterol 53L, HDL Cholesterol 48, Cholesterol/HDL Ratio 2.4L Height (Feet): 6 Height (Inches): 1.00 Weight (Pounds): 240 General Appearance: no apparent distress Cardiovascular: tachycardia Respiratory/Chest: decreased breath sounds, rhonchi - bilaterally ANGELITA WINN Aug 07, 2016 13:19
--- NOTE | 2016-08-07 17:58 | Pulmonology Progress Note ---
Assessment/Plan Problems: (1) COPD (chronic obstructive pulmonary disease) (2) Purulent bronchitis (3) COPD exacerbation (4) UTI (urinary tract infection) (5) Renal failure (6) HTN (hypertension) Assessment/Plan improving respiratory treatment f/u urine c/s bp better Subjective ROS Limited/Unobtainable: No Respiratory: Reports: dyspnea on exertion, productive cough, shortness of breath, sputum Allergies: Coded Allergies: NO KNOWN ALLERGIES (Unverified Allergy, Unknown, 08/04/16) Objective Last 24 Hour Vital Signs Date Time Temp Pulse Resp B/P Pulse Ox O2 Delivery O2 Flow Rate FiO2 08/07/16 16:26 97.9 94 20 166/79 97 Room Air 08/07/16 12:35 98.2 08/07/16 12:35 98.2 08/07/16 12:12 100 18 99 Room Air 21 08/07/16 12:03 96 20 Room Air 21 08/07/16 11:51 98.2 94 20 167/80 95 Room Air 08/07/16 11:35 162/82 08/07/16 08:33 97.8 91 22 162/82 96 Room Air 08/07/16 08:20 154/78 08/07/16 08:19 154/78 08/07/16 07:40 115 18 99 Room Air 21 08/07/16 07:30 21 08/07/16 07:30 120 22 96 Room Air 21 08/07/16 06:22 69 154/78 08/07/16 04:09 172/86 08/07/16 04:00 97.6 76 18 172/86 97 Room Air 08/07/16 01:30 21 08/07/16 01:30 72 18 97 Room Air 21 08/07/16 01:30 73 18 99 Room Air 21 08/07/16 00:00 97.3 77 18 152/78 97 Room Air 08/06/16 21:50 154/72 08/06/16 20:45 76 18 99 Room Air 21 08/06/16 20:45 21 08/06/16 20:45 79 18 96 Room Air 21 08/06/16 20:06 98.4 100 18 196/82 99 Room Air 08/06/16 19:38 198/84 08/06/16 18:07 83 170/75 08/06/16 18:06 170/75 Intake and Output 08/06/16 08/07/16 19:00 07:00 Intake Total 1210 ml 1145 ml Output Total 1225 ml Balance 1210 ml -80 ml Intake Oral 760 ml 620 ml IV Total 450 ml 525 ml Output Urine Total 1225 ml General Appearance: no acute distress HEENT: normocephalic, atraumatic, PERRL Respiratory/Chest: chest wall non-tender, decreased breath sounds, accessory muscle use, rhonchi Cardiovascular: normal peripheral pulses, normal rate, regular rhythm, no JVD Abdomen: normal bowel sounds, soft, non tender, no organomegaly Genitourinary: normal external genitalia Extremities: no cyanosis Neurologic/Psychiatric: lease examiner II-XII grossly normal, no motor/sensory deficits Laboratory Tests 08/07/16 00:00: Urine Osmolality [Pending] 08/07/16 05:20: White Blood Count 8.1, Red Blood Count 3.43L, Hemoglobin 9.9L, Hematocrit 31.5L , Mean Corpuscular Volume 92, Mean Corpuscular Hemoglobin 29.0, Mean Corpuscular Hemoglobin Concent 31.5L, Red Cell Distribution Width 12.4, Platelet Count 176, Mean Platelet Volume 9.9, Neutrophils (%) (Auto) 57.5, Lymphocytes (%) (Auto) 22.8, Monocytes (%) (Auto) 12.7H, Eosinophils (%) (Auto) 5.0H, Basophils (%) (Auto) 2.0, Sodium Level 136, Potassium Level 4.3, Chloride Level 100, Carbon Dioxide Level 24, Anion Gap 12, Blood Urea Nitrogen 26H, Creatinine 1.1, Estimat Glomerular Filtration Rate > 60, Glucose Level 161H, Hemoglobin A1c 6.6H, Uric Acid 6.8, Calcium Level 8.1L, Phosphorus Level 3.2, Magnesium Level 1.8, Total Bilirubin 0.4, Gamma Glutamyl Transpeptidase 94H, Aspartate Amino Transf (AST/SGOT) 18, Alanine Aminotransferase (ALT/SGPT) 10, Alkaline Phosphatase 58, C-Reactive Protein, Quantitative 1.6H, Pro-B-Type Natriuretic Peptide 112, Total Protein 5.8L, Albumin 2.5L, Globulin 3.3, Albumin /Globulin Ratio 0.7L, Triglycerides Level 74, Cholesterol Level 116, LDL Cholesterol 53L, HDL Cholesterol 48, Cholesterol/HDL Ratio 2.4L Current Medications Medications (Trade) Dose Ordered Sig/Ana Route PRN Reason Start Time Stop Time Status Last Admin Dose Admin Acetaminophen/ Hydrocodone Bitart ([place] 5/325) 1 tab Q6H PRN ORAL Mild Pain (Pain Scale 1-3) 08/05/16 16:26 08/11/16 20:29 Acetaminophen/ Hydrocodone Bitart ([place] 7.5/325) 1 ea EVERY 6 HOURS PRN ORAL Moderate Pain (Pain Scale 4-6) 08/05/16 16:26 08/11/16 20:29 Albuterol/ Ipratropium (DuoNeb 0.5-3(2.5)mg/3ml) 3 ml Q4HRT PRN HHN Shortness of Breath 08/04/16 17:45 08/09/16 17:44 08/05/16 11:45 Albuterol/ Ipratropium (DuoNeb 0.5-3(2.5)mg/3ml) 3 ml Q6HRT HHN 08/05/16 19:00 08/10/16 18:59 08/07/16 12:04 Atorvastatin Calcium (Lipitor) 20 mg BEDTIME ORAL 08/04/16 21:00 09/03/16 20:59 08/06/16 21:56 Ceftriaxone Sodium/Dextrose (Rocephin/D5W 50ml) 55 ml @ 100 mls/hr Q24H IVPB 08/05/16 09:00 08/12/16 08:59 08/07/16 08:16 Clonidine HCl (Catapres) 0.1 mg Q4H PRN ORAL For High Blood Pressure 08/05/16 21:15 09/04/16 21:14 08/07/16 04:09 Dextrose (Dextrose 50%) STAT PRN IV Hypoglycemia 08/04/16 17:45 09/03/16 17:44 Docusate Sodium (Colace) 100 mg THREE TIMES A DAY ORAL 08/05/16 18:00 09/04/16 17:59 08/07/16 11:35 Finasteride (Proscar) 5 mg DAILY ORAL 08/05/16 09:30 09/04/16 09:29 08/07/16 08:17 Gabapentin (Neurontin) 600 mg THREE TIMES A DAY ORAL 08/05/16 10:15 2/15/17 10:14 08/07/16 11:36 Hydralazine HCl (Apresoline) 100 mg TID ORAL 08/04/16 18:00 09/03/16 17:59 08/07/16 11:35 Insulin Aspart (NovoLOG) BEFORE MEALS AND HS SUBQ 08/04/16 21:00 09/03/16 20:59 08/07/16 11:38 Insulin Detemir (Levemir) 5 units DAILY SUBQ 08/04/16 17:45 09/03/16 17:44 08/07/16 08:32 Lactulose (Cephulac) 30 gm THREE TIMES A DAY ORAL 08/05/16 18:00 09/04/16 17:59 08/07/16 08:18 Losartan Potassium (Cozaar) 100 mg DAILY ORAL 08/05/16 21:30 09/04/16 21:29 08/07/16 08:20 Mineral Oil (Fleet's Mineral Oil Enema) 133 ml EVERY OTHER DAY RECTAL 08/07/16 09:00 09/06/16 08:59 Morphine Sulfate (Morphine Sulfate) 4 mg Q4H PRN IV Severe Pain (Pain Scale 7-10) 08/05/16 16:15 08/12/16 16:14 08/07/16 12:43 Nifedipine (Procardia XL) 60 mg Q12H ORAL 08/07/16 06:00 09/06/16 05:59 08/07/16 06:22 Ondansetron HCl 4 mg 4 mg Q4HR PRN IVP Nausea & Vomiting 08/04/16 19:00 09/03/16 18:59 Pantoprazole (Protonix) 40 mg DAILY ORAL 08/07/16 18:00 09/06/16 17:59 Polyethylene Glycol (Miralax) 17 gm BEDTIME ORAL 08/05/16 21:00 09/04/16 20:59 08/06/16 21:56 Promethazine HCl/ Codeine (Phenergan with Codeine) 5 ml Q4H PRN ORAL For Cough 08/05/16 16:15 09/04/16 16:14 Sennosides (Senokot) 8.6 mg DAILY ORAL 08/06/16 09:00 09/05/16 08:59 08/07/16 08:18 Tamsulosin HCl (Flomax) 0.8 mg BEDTIME ORAL 08/04/16 21:00 09/03/16 20:59 08/06/16 21:56 KALEIGH SCHULER Aug 07, 2016 17:58
[2016-08-07] MEDS: Atorvastatin 20mg tab ORAL SCH (22:13)
[2016-08-07] MEDS: Tamsulosin 0.4mg cap ORAL SCH (22:13)
[2016-08-07] MEDS: Miralax 17gm pkt ORAL SCH (22:13)
[2016-08-08] MEDS: DuoNeb 0.5-3(2.5)mg/3ml neb HHN SCH ×4 (01:00→19:13)
[2016-08-08 04:00] VITALS: BP 160/76
[2016-08-08] MEDS: NovoLOG Insulin Flexpen SUBQ SCH ×4 (06:14→21:22)
[2016-08-08 08:18] VITALS: BP 149/74
[2016-08-08] MEDS: Docusate 100mg cap ORAL SCH ×3 (08:36→18:43)
[2016-08-08] MEDS: HydrALAZINE 25mg tab ORAL SCH ×2 (08:36→14:03)
[2016-08-08] MEDS: Lactulose 20gm/30ml UDC ORAL SCH ×3 (08:36→18:44)
[2016-08-08] MEDS: cefTRIAXone 1 GM in D5W 55 ML IVPB SCH (08:36)
[2016-08-08] MEDS: Losartan 50mg tab ORAL SCH (08:37)
[2016-08-08] MEDS: Morphine Sulfate 4mg/ml Inj IV PRN ×3 (08:38→21:18)
[2016-08-08] MEDS: Levemir Flexpen SUBQ SCH (08:42)
--- NOTE | 2016-08-08 09:23 | Urology Progress Note ---
Assessment/Plan Assessment/Plan 1. Urinary retention. 2. Benign prostatic hypertrophy. 3. Probable neurogenic bladder. 4. Renal insufficiency, which is acute on chronic. 5. Hematuria. 6. Pyuria. 7. Possible chronic prostatitis. 8. Proteinuria. voiding now cont flomax and proscar abx as ordered cysto later Subjective Allergies: Coded Allergies: NO KNOWN ALLERGIES (Unverified Allergy, Unknown, 08/04/16) Subjective weir out and voiding, no new complaints Objective Last 24 Hour Vital Signs Date Time Temp Pulse Resp B/P Pulse Ox O2 Delivery O2 Flow Rate FiO2 08/08/16 08:37 149/74 08/08/16 08:36 149/74 08/08/16 08:18 97.5 85 20 149/74 95 Room Air 08/08/16 06:08 81 160/76 08/08/16 05:26 81 14 100 Room Air 21 08/08/16 05:20 82 14 99 Room Air 08/08/16 04:00 97.7 81 18 160/76 100 08/08/16 01:22 Room Air 08/08/16 01:21 Room Air 08/07/16 23:17 97.3 81 18 166/80 93 Room Air 08/07/16 22:51 83 161/80 08/07/16 22:42 97.9 08/07/16 22:13 166/79 08/07/16 19:52 88 16 96 Room Air 21 08/07/16 19:44 86 16 95 Room Air 21 08/07/16 19:25 97.9 08/07/16 18:53 94 166/79 08/07/16 18:53 166/79 08/07/16 16:26 97.9 94 20 166/79 97 Room Air 08/07/16 12:35 98.2 08/07/16 12:12 100 18 99 Room Air 21 08/07/16 12:03 96 20 Room Air 21 08/07/16 11:51 98.2 94 20 167/80 95 Room Air 08/07/16 11:35 162/82 Intake and Output 08/07/16 08/08/16 19:00 07:00 Intake Total 720 ml 760 ml Output Total 1100 ml 1070 ml Balance -380 ml -310 ml Intake Oral 720 ml 760 ml Output Urine Total 1100 ml 1070 ml Microbiology Date/Time Source Procedure Growth Status 08/06/16 13:30 Sputum Gram Stain Pending Resulted 08/06/16 13:30 Sputum Sputum Culture - Preliminary Resulted 08/04/16 05:35 Urine,Clean Catch Urine Culture - Final NO GROWTH AFTER 48 HOURS Complete Current Medications Medications (Trade) Dose Ordered Sig/Ana Route PRN Reason Start Time Stop Time Status Last Admin Dose Admin Acetaminophen/ Hydrocodone Bitart ([place] 5/325) 1 tab Q6H PRN ORAL Mild Pain (Pain Scale 1-3) 08/05/16 16:26 08/11/16 20:29 Acetaminophen/ Hydrocodone Bitart ([place] 7.5/325) 1 ea EVERY 6 HOURS PRN ORAL Moderate Pain (Pain Scale 4-6) 08/05/16 16:26 08/11/16 20:29 Albuterol/ Ipratropium (DuoNeb 0.5-3(2.5)mg/3ml) 3 ml Q4HRT PRN HHN Shortness of Breath 08/04/16 17:45 08/09/16 17:44 08/05/16 11:45 Albuterol/ Ipratropium (DuoNeb 0.5-3(2.5)mg/3ml) 3 ml Q6HRT HHN 08/05/16 19:00 08/10/16 18:59 08/08/16 05:19 Atorvastatin Calcium (Lipitor) 20 mg BEDTIME ORAL 08/04/16 21:00 09/03/16 20:59 08/07/16 22:13 Ceftriaxone Sodium/Dextrose (Rocephin/D5W 50ml) 55 ml @ 100 mls/hr Q24H IVPB 08/05/16 09:00 08/12/16 08:59 08/08/16 08:36 Clonidine HCl (Catapres) 0.1 mg Q4H PRN ORAL For High Blood Pressure 08/05/16 21:15 09/04/16 21:14 08/07/16 22:13 Dextrose (Dextrose 50%) STAT PRN IV Hypoglycemia 08/04/16 17:45 09/03/16 17:44 Docusate Sodium (Colace) 100 mg THREE TIMES A DAY ORAL 08/05/16 18:00 09/04/16 17:59 08/08/16 08:36 Finasteride (Proscar) 5 mg DAILY ORAL 08/05/16 09:30 09/04/16 09:29 08/08/16 08:37 Gabapentin (Neurontin) 600 mg THREE TIMES A DAY ORAL 08/05/16 10:15 09/04/16 10:14 08/08/16 08:37 Hydralazine HCl (Apresoline) 100 mg TID ORAL 08/04/16 18:00 09/03/16 17:59 08/08/16 08:36 Insulin Aspart (NovoLOG) BEFORE MEALS AND HS SUBQ 08/04/16 21:00 09/03/16 20:59 08/08/16 06:14 Insulin Detemir (Levemir) 5 units DAILY SUBQ 08/04/16 17:45 09/03/16 17:44 08/08/16 08:42 Lactulose (Cephulac) 30 gm THREE TIMES A DAY ORAL 08/05/16 18:00 09/04/16 17:59 08/08/16 08:36 Losartan Potassium (Cozaar) 100 mg DAILY ORAL 08/05/16 21:30 09/04/16 21:29 08/08/16 08:37 Mineral Oil (Fleet's Mineral Oil Enema) 133 ml EVERY OTHER DAY RECTAL 08/07/16 09:00 09/06/16 08:59 Morphine Sulfate (Morphine Sulfate) 4 mg Q3H PRN IV Severe Pain (Pain Scale 7-10) 08/07/16 18:00 08/14/16 17:59 08/08/16 08:38 Nifedipine (Procardia XL) 60 mg Q12H ORAL 08/07/16 06:00 09/06/16 05:59 08/08/16 06:08 Ondansetron HCl 4 mg 4 mg Q4HR PRN IVP Nausea & Vomiting 08/04/16 19:00 09/03/16 18:59 Pantoprazole (Protonix) 40 mg DAILY ORAL 08/07/16 18:00 09/06/16 17:59 08/08/16 08:37 Polyethylene Glycol (Miralax) 17 gm BEDTIME ORAL 08/05/16 21:00 09/04/16 20:59 08/07/16 22:13 Promethazine HCl/ Codeine (Phenergan with Codeine) 5 ml Q4H PRN ORAL For Cough 08/05/16 16:15 09/04/16 16:14 Sennosides (Senokot) 8.6 mg DAILY ORAL 08/06/16 09:00 09/05/16 08:59 08/08/16 08:37 Tamsulosin HCl (Flomax) 0.8 mg BEDTIME ORAL 08/04/16 21:00 09/03/16 20:59 08/07/16 22:13 Height (Feet): 6 Height (Inches): 1.00 Weight (Pounds): 240 Objective exam stable SONIA FRANKLIN Aug 08, 2016 09:23
[2016-08-08 12:08] VITALS: BP 143/74
--- NOTE | 2016-08-08 15:00 | General Progress Note ---
Assessment/Plan Status: stable - from renal stand point Assessment/Plan Acute renal failure likely mixed pre renal and Renal- resolving- Cr 1.1 other: 1. Urinary outlet obstruction. UTI 2. Benign prostatic hypertrophy. 3. 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 Hypertension. leading to hypertensive nephropathy- stable 5. Chronic obstructive pulmonary disease. Exacerbatio Plan: Per consultants- Monitor urine out put and renal parameters- Per orders- Subjective ROS Limited/Unobtainable: No Constitutional: Reports: malaise Allergies: Coded Allergies: NO KNOWN ALLERGIES (Unverified Allergy, Unknown, 08/04/16) Objective Last 24 Hour Vital Signs Date Time Temp Pulse Resp B/P Pulse Ox O2 Delivery O2 Flow Rate FiO2 08/08/16 14:55 85 16 97 Room Air 21 08/08/16 14:03 143/74 08/08/16 12:08 98.2 81 20 143/74 93 Room Air 08/08/16 08:37 149/74 08/08/16 08:36 149/74 08/08/16 08:18 97.5 85 20 149/74 95 Room Air 08/08/16 06:08 81 160/76 08/08/16 05:26 81 14 100 Room Air 21 08/08/16 05:20 82 14 99 Room Air 08/08/16 04:00 97.7 81 18 160/76 100 08/08/16 01:22 Room Air 08/08/16 01:21 Room Air 08/07/16 23:17 97.3 81 18 166/80 93 Room Air 08/07/16 22:51 83 161/80 08/07/16 22:42 97.9 08/07/16 22:13 166/79 08/07/16 19:52 88 16 96 Room Air 21 08/07/16 19:44 86 16 95 Room Air 21 08/07/16 19:25 97.9 08/07/16 18:53 94 166/79 08/07/16 18:53 166/79 08/07/16 16:26 97.9 94 20 166/79 97 Room Air Intake and Output 08/07/16 08/08/16 19:00 07:00 Intake Total 720 ml 760 ml Output Total 1100 ml 1070 ml Balance -380 ml -310 ml Intake Oral 720 ml 760 ml Output Urine Total 1100 ml 1070 ml Height (Feet): 6 Height (Inches): 1.00 Weight (Pounds): 240 General Appearance: no apparent distress Objective PE not changed ANGELITA WINN Aug 08, 2016 15:00
[2016-08-08] MEDS ORDERED: FINASTERIDE5 MG ORAL (17:02)
[2016-08-08] MEDS ORDERED: FLOMAX0.4 MG ORAL (17:02)
--- NOTE | 2016-08-08 17:11 | Internal Med Progress Note ---
Subjective Date of Service: Aug 08, 2016 Physician Name FiorAdeola Attending Physician Jake Kruger MD Current Medications Medications (Trade) Dose Ordered Sig/Ana Route PRN Reason Start Time Stop Time Status Last Admin Dose Admin Acetaminophen/ Hydrocodone Bitart ([place] 5/325) 1 tab Q6H PRN ORAL Mild Pain (Pain Scale 1-3) 08/05/16 16:26 08/11/16 20:29 Acetaminophen/ Hydrocodone Bitart ([place] 7.5/325) 1 ea EVERY 6 HOURS PRN ORAL Moderate Pain (Pain Scale 4-6) 08/05/16 16:26 08/11/16 20:29 Albuterol/ Ipratropium (DuoNeb 0.5-3(2.5)mg/3ml) 3 ml Q4HRT PRN HHN Shortness of Breath 08/04/16 17:45 08/09/16 17:44 08/05/16 11:45 Albuterol/ Ipratropium (DuoNeb 0.5-3(2.5)mg/3ml) 3 ml Q6HRT HHN 08/05/16 19:00 08/10/16 18:59 08/08/16 14:55 Atorvastatin Calcium (Lipitor) 20 mg BEDTIME ORAL 08/04/16 21:00 09/03/16 20:59 08/07/16 22:13 Ceftriaxone Sodium/Dextrose (Rocephin/D5W 50ml) 55 ml @ 100 mls/hr Q24H IVPB 08/05/16 09:00 08/12/16 08:59 08/08/16 08:36 Clonidine HCl (Catapres) 0.1 mg Q4H PRN ORAL For High Blood Pressure 08/05/16 21:15 09/04/16 21:14 08/07/16 22:13 Dextrose (Dextrose 50%) STAT PRN IV Hypoglycemia 08/04/16 17:45 09/03/16 17:44 Docusate Sodium (Colace) 100 mg THREE TIMES A DAY ORAL 08/05/16 18:00 09/04/16 17:59 08/08/16 14:03 Finasteride (Proscar) 5 mg DAILY ORAL 08/05/16 09:30 09/04/16 09:29 08/08/16 08:37 Gabapentin (Neurontin) 600 mg THREE TIMES A DAY ORAL 08/05/16 10:15 09/04/16 10:14 08/08/16 14:03 Hydralazine HCl (Apresoline) 100 mg TID ORAL 08/08/16 18:00 09/03/16 17:59 Insulin Aspart (NovoLOG) BEFORE MEALS AND HS SUBQ 08/04/16 21:00 09/03/16 20:59 08/08/16 11:14 Insulin Detemir (Levemir) 5 units DAILY SUBQ 08/04/16 17:45 09/03/16 17:44 08/08/16 08:42 Lactulose (Cephulac) 30 gm THREE TIMES A DAY ORAL 08/05/16 18:00 09/04/16 17:59 08/08/16 14:03 Losartan Potassium (Cozaar) 100 mg DAILY ORAL 08/05/16 21:30 09/04/16 21:29 08/08/16 08:37 Mineral Oil (Fleet's Mineral Oil Enema) 133 ml EVERY OTHER DAY RECTAL 08/07/16 09:00 09/06/16 08:59 Morphine Sulfate (Morphine Sulfate) 4 mg Q3H PRN IV Severe Pain (Pain Scale 7-10) 08/07/16 18:00 08/14/16 17:59 08/08/16 14:04 Nifedipine (Procardia XL) 60 mg Q12H ORAL 08/07/16 06:00 09/06/16 05:59 08/08/16 06:08 Ondansetron HCl 4 mg 4 mg Q4HR PRN IVP Nausea & Vomiting 08/04/16 19:00 09/03/16 18:59 Pantoprazole (Protonix) 40 mg DAILY ORAL 08/07/16 18:00 09/06/16 17:59 08/08/16 08:37 Polyethylene Glycol (Miralax) 17 gm BEDTIME ORAL 08/05/16 21:00 09/04/16 20:59 08/07/16 22:13 Promethazine HCl/ Codeine (Phenergan with Codeine) 5 ml Q4H PRN ORAL For Cough 08/05/16 16:15 09/04/16 16:14 Sennosides (Senokot) 8.6 mg DAILY ORAL 08/06/16 09:00 09/05/16 08:59 08/08/16 08:37 Tamsulosin HCl (Flomax) 0.8 mg BEDTIME ORAL 08/04/16 21:00 09/03/16 20:59 08/07/16 22:13 Allergies: Coded Allergies: NO KNOWN ALLERGIES (Unverified Allergy, Unknown, 08/04/16) ROS Limited/Unobtainable: No Constitutional: Reports: no symptoms HEENT: Reports: no symptoms Cardiovascular: Reports: no symptoms Respiratory: Reports: no symptoms Gastrointestinal/Abdominal: Reports: no symptoms Genitourinary: Reports: no symptoms Neurologic/Psychiatric: Reports: no symptoms Subjective 71 YO M admitted with urine outlet obstruction. Cover for Int Med-Dr Kruger. Voiding after weir removed. Objective Last Vital Signs Date Time Temp Pulse Resp B/P Pulse Ox O2 Delivery O2 Flow Rate FiO2 08/08/16 14:59 85 16 97 Room Air 21 08/08/16 14:03 143/74 08/08/16 12:08 98.2 Microbiology Date/Time Source Procedure Growth Status 08/06/16 13:30 Sputum Gram Stain Pending Resulted 08/06/16 13:30 Sputum Sputum Culture - Preliminary Resulted Intake and Output 08/07/16 08/08/16 19:00 07:00 Intake Total 720 ml 760 ml Output Total 1100 ml 1070 ml Balance -380 ml -310 ml Intake Oral 720 ml 760 ml Output Urine Total 1100 ml 1070 ml Objective General Appearance: WD/WN, no apparent distress, alert EENT: PERRL/EOMI, normal ENT inspection Neck: non-tender, normal alignment, supple Cardiovascular: normal peripheral pulses, normal rate, regular rhythm, no gallop/murmur, no JVD Respiratory/Chest: chest wall non-tender, lungs clear, normal breath sounds, no respiratory distress, no accessory muscle use Abdomen: normal bowel sounds, non tender, soft, no organomegaly, no mass Extremities: normal range of motion Neurologic: criminal investigative agent II-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 Clonidine prn (2) Decreased urine output (3) Acute urinary retention Assessment & Plan: See urology note. passed voiding trial per Urology (4) Diabetes mellitus Assessment & Plan: Cont novolog sliding scale. (5) COPD (chronic obstructive pulmonary disease) (6) BPH (benign prostatic hypertrophy) Assessment & Plan: Cont flomax (7) Neurogenic bladder (8) Renal failure Assessment & Plan: Improving; see nephrology note. Assessment/Plan D/C in am 08/09/15 to home ADEOLA CHIU Aug 08, 2016 17:11
--- NOTE | 2016-08-08 18:09 | Pulmonology Progress Note ---
Assessment/Plan Problems: (1) COPD (chronic obstructive pulmonary disease) (2) Purulent bronchitis (3) COPD exacerbation (4) UTI (urinary tract infection) (5) Renal failure (6) HTN (hypertension) Assessment/Plan improving respiratory treatment f/u urine c/s bp better Subjective ROS Limited/Unobtainable: No Respiratory: Reports: productive cough, shortness of breath, sputum, wheezing Allergies: Coded Allergies: NO KNOWN ALLERGIES (Unverified Allergy, Unknown, 08/04/16) Objective Last 24 Hour Vital Signs Date Time Temp Pulse Resp B/P Pulse Ox O2 Delivery O2 Flow Rate FiO2 08/08/16 14:59 85 16 97 Room Air 21 08/08/16 14:55 85 16 97 Room Air 21 08/08/16 14:03 143/74 08/08/16 12:08 98.2 81 20 143/74 93 Room Air 08/08/16 08:37 149/74 08/08/16 08:36 149/74 08/08/16 08:18 97.5 85 20 149/74 95 Room Air 08/08/16 06:08 81 160/76 08/08/16 05:26 81 14 100 Room Air 21 08/08/16 05:20 82 14 99 Room Air 08/08/16 04:00 97.7 81 18 160/76 100 08/08/16 01:22 Room Air 08/08/16 01:21 Room Air 08/07/16 23:17 97.3 81 18 166/80 93 Room Air 08/07/16 22:51 83 161/80 08/07/16 22:42 97.9 08/07/16 22:13 166/79 08/07/16 19:52 88 16 96 Room Air 21 08/07/16 19:44 86 16 95 Room Air 21 08/07/16 19:25 97.9 08/07/16 18:53 94 166/79 08/07/16 18:53 166/79 Intake and Output 08/07/16 08/08/16 19:00 07:00 Intake Total 720 ml 760 ml Output Total 1100 ml 1070 ml Balance -380 ml -310 ml Intake Oral 720 ml 760 ml Output Urine Total 1100 ml 1070 ml General Appearance: no acute distress HEENT: normocephalic, atraumatic, PERRL Respiratory/Chest: chest wall non-tender, decreased breath sounds, accessory muscle use, expiratory wheezing Cardiovascular: normal peripheral pulses, normal rate, regular rhythm, no JVD Abdomen: normal bowel sounds, soft, non tender, no organomegaly Genitourinary: normal external genitalia Extremities: no cyanosis Skin: no rash, no lesions Neurologic/Psychiatric: 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 grossly normal, no motor/sensory deficits Microbiology Date/Time Source Procedure Growth Status 08/06/16 13:30 Sputum Gram Stain Pending Resulted 08/06/16 13:30 Sputum Sputum Culture - Preliminary Resulted Current Medications Medications (Trade) Dose Ordered Sig/Ana Route PRN Reason Start Time Stop Time Status Last Admin Dose Admin Acetaminophen/ Hydrocodone Bitart ([place] 5/325) 1 tab Q6H PRN ORAL Mild Pain (Pain Scale 1-3) 08/05/16 16:26 08/11/16 20:29 Acetaminophen/ Hydrocodone Bitart ([place] 7.5/325) 1 ea EVERY 6 HOURS PRN ORAL Moderate Pain (Pain Scale 4-6) 08/05/16 16:26 08/11/16 20:29 Albuterol/ Ipratropium (DuoNeb 0.5-3(2.5)mg/3ml) 3 ml Q4HRT PRN HHN Shortness of Breath 08/04/16 17:45 08/09/16 17:44 08/05/16 11:45 Albuterol/ Ipratropium (DuoNeb 0.5-3(2.5)mg/3ml) 3 ml Q6HRT HHN 08/05/16 19:00 08/10/16 18:59 08/08/16 14:55 Atorvastatin Calcium (Lipitor) 20 mg BEDTIME ORAL 08/04/16 21:00 09/03/16 20:59 08/07/16 22:13 Ceftriaxone Sodium/Dextrose (Rocephin/D5W 50ml) 55 ml @ 100 mls/hr Q24H IVPB 08/05/16 09:00 08/12/16 08:59 08/08/16 08:36 Clonidine HCl (Catapres) 0.1 mg Q4H PRN ORAL For High Blood Pressure 08/05/16 21:15 09/04/16 21:14 08/07/16 22:13 Dextrose (Dextrose 50%) STAT PRN IV Hypoglycemia 08/04/16 17:45 09/03/16 17:44 Docusate Sodium (Colace) 100 mg THREE TIMES A DAY ORAL 08/05/16 18:00 09/04/16 17:59 08/08/16 14:03 Finasteride (Proscar) 5 mg DAILY ORAL 08/05/16 09:30 09/04/16 09:29 08/08/16 08:37 Gabapentin (Neurontin) 600 mg THREE TIMES A DAY ORAL 08/05/16 10:15 09/04/16 10:14 08/08/16 14:03 Hydralazine HCl (Apresoline) 100 mg TID ORAL 08/08/16 18:00 09/03/16 17:59 Insulin Aspart (NovoLOG) BEFORE MEALS AND HS SUBQ 08/04/16 21:00 09/03/16 20:59 08/08/16 11:14 Insulin Detemir (Levemir) 5 units DAILY SUBQ 08/04/16 17:45 09/03/16 17:44 08/08/16 08:42 Lactulose (Cephulac) 30 gm THREE TIMES A DAY ORAL 08/05/16 18:00 09/04/16 17:59 08/08/16 14:03 Losartan Potassium (Cozaar) 100 mg DAILY ORAL 08/05/16 21:30 09/04/16 21:29 08/08/16 08:37 Mineral Oil (Fleet's Mineral Oil Enema) 133 ml EVERY OTHER DAY RECTAL 08/07/16 09:00 09/06/16 08:59 Morphine Sulfate (Morphine Sulfate) 4 mg Q3H PRN IV Severe Pain (Pain Scale 7-10) 08/07/16 18:00 08/14/16 17:59 08/08/16 14:04 Nifedipine (Procardia XL) 60 mg Q12H ORAL 08/07/16 06:00 09/06/16 05:59 08/08/16 06:08 Ondansetron HCl 4 mg 4 mg Q4HR PRN IVP Nausea & Vomiting 08/04/16 19:00 09/03/16 18:59 Pantoprazole (Protonix) 40 mg DAILY ORAL 08/07/16 18:00 09/06/16 17:59 08/08/16 08:37 Polyethylene Glycol (Miralax) 17 gm BEDTIME ORAL 08/05/16 21:00 09/04/16 20:59 08/07/16 22:13 Promethazine HCl/ Codeine (Phenergan with Codeine) 5 ml Q4H PRN ORAL For Cough 08/05/16 16:15 09/04/16 16:14 Sennosides (Senokot) 8.6 mg DAILY ORAL 08/06/16 09:00 09/05/16 08:59 08/08/16 08:37 Tamsulosin HCl (Flomax) 0.8 mg BEDTIME ORAL 08/04/16 21:00 09/03/16 20:59 08/07/16 22:13 KALEIGH SCHULER Aug 08, 2016 18:09
[2016-08-08] MEDS: HydrALAZINE 50mg tab ORAL SCH (18:43)
[2016-08-08 20:00] VITALS: BP 163/79
[2016-08-08] MEDS: Miralax 17gm pkt ORAL SCH (21:00)
[2016-08-08] MEDS: Tamsulosin 0.4mg cap ORAL SCH (21:17)
[2016-08-08] MEDS: Atorvastatin 20mg tab ORAL SCH (21:17)
[2016-08-09] VITALS: BP 149/97
[2016-08-09] MEDS: DuoNeb 0.5-3(2.5)mg/3ml neb HHN SCH ×2 (00:52→06:59)
[2016-08-09 03:39] VITALS: BP 146/76
[2016-08-09] MEDS: NovoLOG Insulin Flexpen SUBQ SCH (06:38)
[2016-08-09 07:13] LABS: BASOPHILS % (AUTO) 1.9 % (0.0-2.0); EOSINOPHILS % (AUTO) 7.1 % (0.0-3.0); LYMPHOCYTES % (AUTO) 22.7 % (20.0-45.0); MEAN CORPUSCULAR HGB CONC 31.6 G/DL (32.0-36.0); MEAN CORPUSCULAR VOLUME 92 FL (80-99); MONOCYTES % (AUTO) 11.5 % (1.0-10.0); NEUTROPHILS % (AUTO) 56.8 % (45.0-75.0); PLATELET COUNT 189 K/UL (150-450); RED BLOOD COUNT 3.47 M/UL (4.70-6.10); RED CELL DISTRIBUTION WIDTH 12.7 % (11.6-14.8); WHITE BLOOD COUNT 10.2 K/UL (4.8-10.8)
[2016-08-09 07:19] LABS: ANION GAP 14 (5-15); CALCIUM 8.3 mg/dL (8.6-10.2); CARBON DIOXIDE 19 mEQ/L (20-30); CHLORIDE 105 mEQ/L (98-107); CREATININE 1.1 mg/dL (0.7-1.2); GLOMERULAR FILTRATION RATE > 60 mL/min (>60); HEMOLYSIS 0; POTASSIUM 4.2 mEQ/L (3.4-4.9); SODIUM 138 mEQ/L (135-145)
[2016-08-09 08:38] VITALS: BP 139/91
[2016-08-09] MEDS: Losartan 50mg tab ORAL SCH (09:00)
[2016-08-09] MEDS: Fleet's Mineral Oil Enema RECTAL SCH (09:00)
[2016-08-09] MEDS: HydrALAZINE 50mg tab ORAL SCH (09:00)
[2016-08-09] MEDS: Lactulose 20gm/30ml UDC ORAL SCH (09:00)
[2016-08-09] MEDS: Levemir Flexpen SUBQ SCH (09:00)
[2016-08-09] MEDS: cefTRIAXone 1 GM in D5W 55 ML IVPB SCH (09:00)
[2016-08-09] MEDS: Docusate 100mg cap ORAL SCH (09:00)
[2016-08-09] MEDS ORDERED: NS 275ml ONE ×2 (09:14)
--- NOTE | 2016-08-09 10:08 | Urology Progress Note ---
Assessment/Plan Assessment/Plan 1. Urinary retention. 2. Benign prostatic hypertrophy. 3. Probable neurogenic bladder. 4. Renal insufficiency, which is acute on chronic. 5. Hematuria. 6. Pyuria. 7. Possible chronic prostatitis. 8. Proteinuria. voiding now renal fxn stable cont flomax, proscar and abx as outpt cysto later, as outpt check PVR as outpt Subjective Allergies: Coded Allergies: NO KNOWN ALLERGIES (Unverified Allergy, Unknown, 08/04/16) Subjective weir out and voiding, seen earlier, plan to go home today Objective Last 24 Hour Vital Signs Date Time Temp Pulse Resp B/P Pulse Ox O2 Delivery O2 Flow Rate FiO2 08/09/16 08:38 97.8 103 20 139/91 95 Room Air 08/09/16 07:00 92 18 98 Room Air 08/09/16 06:50 87 18 93 Room Air 08/09/16 06:00 86 146/76 08/09/16 03:39 98.0 86 18 146/76 93 Room Air 08/09/16 00:53 Room Air 08/09/16 00:53 Room Air 08/09/16 00:00 97.9 87 19 149/97 93 Room Air 08/08/16 21:48 98.1 08/08/16 20:00 98.1 91 21 163/79 93 Nasal Cannula 2.0 08/08/16 19:42 98.2 08/08/16 19:24 87 16 97 Room Air 21 08/08/16 19:14 88 14 97 Room Air 21 08/08/16 18:43 143/74 08/08/16 18:42 85 143/74 08/08/16 14:59 85 16 97 Room Air 21 08/08/16 14:55 85 16 97 Room Air 21 08/08/16 14:03 143/74 08/08/16 12:08 98.2 81 20 143/74 93 Room Air Intake and Output 08/08/16 08/09/16 19:00 07:00 Intake Total 460 ml 705 ml Output Total 900 ml 800 ml Balance -440 ml -95 ml Intake Oral 360 ml 705 ml IV Total 100 ml Output Urine Total 900 ml 800 ml # Voids 2 # Bowel Movements 1 Microbiology Date/Time Source Procedure Growth Status 08/06/16 13:30 Sputum Gram Stain Pending Resulted 08/06/16 13:30 Sputum Culture - Preliminary Gram Negative Bacillus 1 Gram Negative Bacillus 2 Resulted 08/04/16 05:35 Urine,Clean Catch Urine Culture - Final NO GROWTH AFTER 48 HOURS Complete Laboratory Tests 08/09/16 04:30: White Blood Count 10.2, Red Blood Count 3.47L, Hemoglobin 10.1L, Hematocrit 31.8L, Mean Corpuscular Volume 92, Mean Corpuscular Hemoglobin 29.0, Mean Corpuscular Hemoglobin Concent 31.6L, Red Cell Distribution Width 12.7, Platelet Count 189, Mean Platelet Volume 10.0, Neutrophils (%) (Auto) 56.8, Lymphocytes (%) (Auto) 22.7, Monocytes (%) (Auto) 11.5H, Eosinophils (%) (Auto) 7.1H, Basophils (%) (Auto) 1.9, Sodium Level 138, Potassium Level 4.2, Chloride Level 105, Carbon Dioxide Level 19L, Anion Gap 14, Blood Urea Nitrogen 20, Creatinine 1.1, Estimat Glomerular Filtration Rate > 60, Glucose Level 132H, Calcium Level 8.3L Height (Feet): 6 Height (Inches): 1.00 Weight (Pounds): 240 Objective exam stable SONIA FRANKLIN Aug 09, 2016 10:08
--- NOTE | 2016-08-09 16:35 | Discharge Summary ---
Discharge Summary Hospital Course Date of Admission Aug 04, 2016 at 15:14 Date of Discharge Aug 09, 2016 at 09:15 Admitting Diagnosis renal failure/hypertensive urgency JOSÉ Caceres is a 71 year old male who was admitted on Aug 04, 2016 at 15:14 for Renal Failure; Hypertensive Urgency Hospital Course The patient was seen and examined at bedside and all new and available data was reviewed in the patients chart. Last 24 Hour Vital Signs Date Time Temp Pulse Resp B/P Pulse Ox O2 Delivery O2 Flow Rate FiO2 08/09/16 08:38 97.8 103 20 139/91 95 Room Air 08/09/16 07:00 92 18 98 Room Air 08/09/16 06:50 87 18 93 Room Air 08/09/16 06:00 86 146/76 08/09/16 03:39 98.0 86 18 146/76 93 Room Air 08/09/16 00:53 Room Air 08/09/16 00:53 Room Air 08/09/16 00:00 97.9 87 19 149/97 93 Room Air 08/08/16 21:48 98.1 08/08/16 20:00 98.1 91 21 163/79 93 Nasal Cannula 2.0 08/08/16 19:42 98.2 08/08/16 19:24 87 16 97 Room Air 21 08/08/16 19:14 88 14 97 Room Air 21 08/08/16 18:43 143/74 08/08/16 18:42 85 143/74 General Appearance: WD/WN, no apparent distress, alert EENT: PERRL/EOMI, normal ENT inspection Neck: non-tender, normal alignment, supple Cardiovascular: normal peripheral pulses, normal rate, regular rhythm, no murmur. Respiratory/Chest: chest wall non-tender, lungs clear, normal breath sounds, no respiratory distress. Abdomen: normal bowel sounds, non tender, soft, Obesity. Extremities: normal range of motion Neurologic: respiratory physician II-XII grossly normal, no motor/sensory deficits Skin: normal pigmentation, warm/dry Plan: DC home today F/u with my office in 1 week. (Patient was seen earlier today. Signature timestamp does not reflect patient encounter time) Jake Kruger MD Discharge Discharge Disposition Patient was discharged to Home (01) Discharge Diagnoses: Jake Kruger MD Aug 09, 2016 16:35
--- NOTE | 2016-08-09 19:53 | Discharge Summary ---
Discharge Summary Hospital Course Date of Admission Aug 04, 2016 at 15:14 Date of Discharge Aug 09, 2016 at 09:15 Admitting Diagnosis renal failure/hypertensive urgency HPI Aubrey Caceres is a 71 year old male who was admitted on Aug 04, 2016 at 15:14 for Renal Failure; Hypertensive Urgency Hospital Course [id number] Discharge Discharge Disposition Patient was discharged to Home (01) Discharge Diagnoses: Jazmín Ferrer NP Aug 09, 2016 19:53
--- NOTE | 2016-08-10 05:57 | Discharge Summary 2 SIG ---
DATE OF ADMISSION: 08/04/2016 DATE OF DISCHARGE: 08/09/2016 CONSULTANTS: 1. Jose Rizvi M.D. 2. Rena De Guzman M.D. 3. Stanley Garcia M.D. HOSPITAL COURSE: The patient is a 71-year-old male with history of BPH who presented with chief complaint of decreased urine flow. He has flu a couple of weeks ago and has not been able to take his medications. Urine flow has decreased considerably and was unable to urinate. He was admitted for urinary outlet obstruction. Dr. Rizvi was consulted. Mcnair catheter was in place. He was given Proscar and Flomax. Dr. Garcia was also consulted. The patient had acute renal failure, likely mixed prerenal and renal. Creatinine was resolving. He was given respiratory treatment. Sputum culture showed growth of gram-negative bacilli. Urine culture did not isolate any growth. Antihypertensives were adjusted. Coreg was discontinued, and was continued with hydralazine and with clonidine p.r.n. Blood sugars were monitored and was given NovoLog sliding scale. Mcnair catheter was eventually discontinued and was voiding well. The patient was discharged home. FINAL DIAGNOSES: 1. Urinary outlet obstruction. 2. Acute urinary retention. 3. Accelerated hypertension. 4. Diabetes mellitus. 5. Chronic obstructive pulmonary disease. 6. Benign prostatic hypertrophy. 7. Acute renal failure, likely mixed prerenal and renal. 8. 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 9. Hypertension leading to hypertensive nephropathy. 10. Possible chronic prostatitis. 11. Proteinuria. 12. Pyuria. 13. Hyperlipidemia. Jake Kruger M.D. I have been assigned to dictate discharge summary on this account and I was not involved in the patient's management. Jazmín Ferrer N.P. DR: SHANEL JOB#: [id number] CC:
== END 2016-08-09 09:15 | disposition home or self-care (01) | DRG 468 ==
LOC: ENRESERVTM → ENRESERVDT → EMR 05:06 → EDBEDREQ 14:49 → 4W 15:14
DX: N32.0 Bladder-neck obstruction (principal); N17.9 Acute kidney failure, unspecified; E11.21 Type 2 diabetes mellitus with diabetic nephropathy; J44.1 Chronic obstructive pulmonary disease with (acute) exacerbation; N40.1 Benign prostatic hyperplasia with lower urinary tract symptoms; R33.8 Other retention of urine; N41.1 Chronic prostatitis; E78.5 Hyperlipidemia, unspecified; Z96.649 Presence of unspecified artificial hip joint; I12.9 Hypertensive chronic kidney disease with stage 1 through stage 4 chronic kidney disease, or unspecified chronic kidney disease; N18.9 Chronic kidney disease, unspecified; N31.9 Neuromuscular dysfunction of bladder, unspecified; J41.1 Mucopurulent chronic bronchitis
CPT/HCPCS: 36415; 71010; 76775; 80048; 80053; 80061; 81001; 81003; 82436; 82533; 82550; 82962; 82977; 83036; 83690; 83735; 83880; 83930; 83935; 84100; 84133; 84300; 84439; 84443; 84481; 84550; 85025; 86140; 87070; 87086; 87181; 87205; 89050; 93005; 94640; 94664; J1815; J2405; J7620; S5561

== ENCOUNTER 2017-10-24 09:30 | Emergency (ER) | payer MEDICARE, MEDICAID ==
[~2017-10-24] VITALS: Ht 185.4 cm; Wt 81.6 kg
[~2017-10-24 09:30] MED LIST changes: +ALBUTEROL SULF8.5 GM INH; +FINASTERIDE5 MG ORAL; +FLOMAX0.4 MG ORAL; +HYDRALAZINE HCL25 M2 PO; +LOSARTAN POTAS100 MG ORAL; +NEURONTIN300 MG ORAL
[2017-10-24 09:58] VITALS: BP 147/56
[2017-10-24] MEDS ORDERED: Ipratropium 0.02% Inh Soln 2.5ml UD HHN SCH (10:15)
[2017-10-24] MEDS ORDERED: Albuterol ud Inhalation HHN SCH (10:15)
[2017-10-24] MEDS ORDERED: AMOXICILLIN500 MG ORAL (11:00)
[2017-10-24] MEDS ORDERED: ALBUTEROL SULF8.5 GM INH (11:00)
[2017-10-24] MEDS ORDERED: PREDNISONE20 MG ORAL (11:00)
[2017-10-24 11:05] VITALS: BP 142/78
--- NOTE | 2017-10-24 11:23 | Emergency Room Report ---
History of Present Illness General Chief Complaint: Upper Respiratory Illness Source: Patient, Medical Record Present Illness HPI 72-year-old male presents ED complaining of cough and congestion 3 weeks. States cough is productive with yellowish phlegm. Denies fevers or chills. Denies chest pain. History of COPD. Denies sick contacts or recent travel. Also notes redness to his right eye starting 3 days ago. States it started after he was coughing a lot. Denies any eye pain. Denies any discharge. Denies any photophobia or blurry vision. No other aggravating relieving factors. Denies any other associated symptoms Allergies: Coded Allergies: NO KNOWN ALLERGIES (Unverified Allergy, Unknown, 08/04/16) Patient History Past Medical History: COPD Past Surgical History: none Pertinent Family History: none Social History: Reports: smoking; Denies: alcohol use, drug use Immunizations: UTD Reviewed Nursing Documentation: PMH: Agreed; PSxH: Agreed Nursing Documentation-PMH Past Medical History: No History, Except For Hx Cardiac Problems: Yes Hx Hypertension: Yes Hx COPD: Yes Hx Diabetes: Yes Hx Cancer: No Hx Gastrointestinal Problems: No Hx Neurological Problems: Yes Hx Peripheral Neuropathy: Yes Review of Systems All Other Systems: negative except mentioned in HPI Physical Exam Vital Signs Date Time Temp Pulse Resp B/P (MAP) Pulse Ox O2 Delivery O2 Flow Rate FiO2 10/24/17 09:48 97.6 89 18 128/76 90 Room Air 97.5 10/24/17 10:16 21 Sp02 EP Interpretation: reviewed, normal General Appearance: no apparent distress, alert, GCS 15, non-toxic Head: normocephalic, atraumatic Eyes: right eye other - subconjunctival hemorrhage; left eye normal inspection ; bilateral eye PERRL, bilateral eye visual acuity ENT: hearing grossly normal, normal pharynx, no angioedema, normal voice Neck: full range of motion, supple/symm/no masses Respiratory: chest non-tender, normal breath sounds, speaking full sentences, wheezing Cardiovascular #1: regular rate, rhythm, no edema Cardiovascular #2: 2+ carotid (R), 2+ carotid (L), 2+ radial (R), 2+ radial (L) , 2+ dorsalis pedis (R), 2+ dorsalis pedis (L) Gastrointestinal: normal bowel sounds, non tender, soft, non-distended, no guarding, no rebound Rectal: deferred Genitourinary: normal inspection, no CVA tenderness Musculoskeletal: back normal, gait/station normal, normal range of motion, non- tender Neurologic: alert, oriented x3, responsive, motor strength/tone normal, sensory intact, speech normal Psychiatric: judgement/insight normal, memory normal, mood/affect normal, no suicidal/homicidal ideation Reflexes: 3+ bicep (R), 3+ bicep (L), 3+ tricep (R), 3+ tricep (L), 3+ knee (R) , 3+ knee (L) Skin: normal color, no rash, warm/dry, well hydrated Lymphatic: no adenopathy Medical Decision Making Diagnostic Impression: Primary Impression: COPD (chronic obstructive pulmonary disease) Qualified Codes: J44.9 - Chronic obstructive pulmonary disease, unspecified Additional Impression: Subconjunctival hemorrhage of right eye ER Course Hospital Course 72-year-old male presents to ED complaining of cough, wheezing Differential diagnoses include: URI, bronchitis, asthma/COPD, pneumonia Clinical course Patient placed on stretcher. After initial history and physical I ordered prednisone and nebulizer treatment. Chest x-ray shows increased atelectasis in the right lower lung base compared to prior films. There is evidence of subconjunctival hemorrhage in the right eye. No photophobia or blurry vision. No discharge. No pain. Discussed findings with patient. Because of history of COPD we will prescribe antibiotics Diagnosis - COPD, subconjunctival hemorrhage Stable and discharged home with prescriptions for Rx albuterol, prednisone, amoxicillin. Instructed to followup with PMD. Return to ED if symptoms recur or worsen Chest X-Ray Diagnostic Results Chest X-Ray Diagnostic Results : Chest X-Ray Ordered: Yes # of Views/Limited/Complete: 1 View Indication: Shortness of Breath EP Interpretation: Yes Interpretation: no pneumothorax, other - increased atelectasis RLL Impression: Other - atelectasis/infiltrate Electronically Signed by: Electronically signed by Brandon Gonzalez MD Last Vital Signs Date Time Temp Pulse Resp B/P (MAP) Pulse Ox O2 Delivery O2 Flow Rate FiO2 10/24/17 11:05 98.6 80 14 142/78 96 Room Air 98.6 10/24/17 10:30 21 Status: improved Disposition: HOME, SELF-CARE Condition: Stable Scripts Albuterol Sulfate* (ALBUTEROL SULFATE MDI*) 8.5 Gm Hfa.aer.ad 2 PUFF INH Q4H PRN for cough/wheezing, #1 EA 0 Refills Prov: Brandon Gonzalez MD 10/24/17 Amoxicillin* (AMOXIL*) 500 Mg Capsule 500 MG ORAL THREE TIMES A DAY, #21 CAP Prov: Brandon Gonzalez MD 10/24/17 Prednisone* (PREDNISONE*) 20 Mg Tablet 40 MG ORAL DAILY, #10 TAB Prov: Brandon Gonzalez MD 10/24/17 Referrals: Jake Kruger MD (PCP) Patient Instructions: Chronic Obstructive Pulmonary Disease, [id number] Brandon Gonzalez MD Oct 24, 2017 11:23
--- NOTE | 2017-10-24 13:57 | Diagnostic Imaging Report ---
Indication: Cough, shortness of breath Technique: One view of the chest Comparison: 08/04/2016 Findings: There is a reticular opacity at the right lung base which appears slightly more extensive than on the prior study, likely combination of chronic fibrotic change and possibly some acute infiltrate. The remainder of the lungs and pleural spaces are clear. There is central bronchial wall thickening. The heart size is normal. Impression: Right basilar opacity, likely combination of minimal infiltrate and chronic interstitial fibrotic change
== END 2017-10-24 11:05 | disposition home or self-care (01) ==
LOC: EMR 10:55
DX: J44.9 Chronic obstructive pulmonary disease, unspecified (principal); H11.31 Conjunctival hemorrhage, right eye; E11.42 Type 2 diabetes mellitus with diabetic polyneuropathy; I10 Essential (primary) hypertension; F17.200 Nicotine dependence, unspecified, uncomplicated
CPT/HCPCS: 71045; 94640; 94664; 99284; J7512

== ENCOUNTER 2017-12-10 09:30 | Outpatient (RCR) | payer MEDICARE, MEDICAID ==
[~2017-12-10 09:30] MED LIST changes: +AMOXICILLIN500 MG ORAL; +PREDNISONE20 MG ORAL
== END 2017-12-18 | disposition home or self-care (01) ==
LOC: PTY 09:30
DX: M54.5 Low back pain (principal)
CPT/HCPCS: 97110; 97161; G8978; G8979

== ENCOUNTER 2017-12-25 11:00 | Outpatient (RCR) | payer MEDICARE, MEDICAID | END 2018-01-17 | disposition home or self-care (01) | LOC: PTY 11:00 | DX: M54.5 Low back pain (principal) ==